=== PATIENT | female | born 1960 | race Caucasian/White ===

== ENCOUNTER 2018-09-04 11:35 | Emergency (ER) | payer MEDICAID, SELFPAY ==
[2018-09-04] VITALS (36 sets, daily range): BP systolic 130–152; BP diastolic 67–82; PULSE 54–80; RESP 11–36; TEMP 37.1; O2SAT 94–100
--- NOTE | 2018-09-04 12:00 | DI.CT_ITS ---
SYMPTOM/DIAGNOSIS: PLEURITIC CHEST AND BACK PAIN PE CHEST CT: CT angiography was performed with multi slice acquisition and multi planar and 3D reconstruction. CT angiography of the chest was performed with a bolus infusion of 100 cc's of Omnipaque 350. Images obtained through the upper abdomen show unremarkable appearance of visualized portions of the liver, spleen, pancreas, adrenals and kidneys. Thoracic aorta shows no evidence of aneurysm or dissection. No evidence of pulmonary embolic disease. No mediastinal or hilar adenopathy. Lungs are clear. No pleural effusion is seen. CONCLUSION: Negative CTA of chest.
--- NOTE | 2018-09-04 12:02 | W.ED.GENAD ---
Discharge Plan Disposition Patient Disposition: HOME Condition: Good Discharge Details Chief Complaint: SOB Clinical Impression: Chest pain, pleuritic Primary Care Provider: Caron Triplett ED Provider: Garrick Armstrong Home Meds and New Rx's Prescriptions: Continue albuterol sulfate [ProAir HFA] 8.5 GM HFA aerosol inhaler 2 puff Inhalation Q4H PRN RF: 0 fluticasone 16 GM spray,suspension 2 puff NS DAILY RF: 0 levothyroxine 112 MCG tablet 112 mcg PO DAILY RF: 0 bupropion HCl [Wellbutrin XL] 150 MG tablet extended release 24 hr 150 mg PO DAILY RF: 0 multivitamin Tablet 1 tab PO DAILY RF: 0 Discharge Instructions Instructions: Chest Pain (ED) Additional Instructions: You had a cat scan of your chest and lab work that did not show any concerning findings If you have worsening pain or difficulty breathing return to the emergency department Follow up with your primary care provider this week and discuss having stress testing done Medical Decision Making 57 yo female with hx of htn though not currently on meds, depression, hypothyroidism, comes in with over a week of chest and upper back pain that is stabbing in nature. Also notes some mild general weakness at the end of the day. Denies fevers recent surgery or recent travel, no lower extremity swelling or calf pain. Speaking in full sentences with clear lung sounds and no murmurs. EKG nondiagostis, heart score is 3 based on age and risk factors, will send troponin. Normal vascular exam and no tearing back pain so dissection less likely. Wells score is moderate given pleuritic nature of pain making PE just as equal likely diagnosis so will proceed with CTA of the chest labs and imaging all unremarkable per Dr. Dc who reviewed the CT. She only has pain with deep breaths, will obtain second troponin. Still has negative troponin less than 0.06. I advised she f/u with pcp this week and have outpatient stress testing done, return precautions given Differential Diagnosis chest wall pain, dissection, acs, pe ECG Data Attestation: I personally reviewed and interpreted this ECG (s) as follows: Prior ECG tracings: not available for review Interpretation: normal sinus rhythm, rate of 72, pr 154, no acute st t wave ischemic findings HPI General Mode of arrival: ambulatory. Date/Time Provider Initiated Documentation: 09/04/18 11:54. Limitations to Documentation: no limitations. Information obtained by: patient. History of Present Illness 57 year old F presents to the emergency department with the chief complaint of back and chest pain, described as moderate, with intensity rated at 6. Quality is described as stabbing, and is localized to the chest and back. Patient reports no radiation. Patient started experiencing this week(s) (1) and it has been intermittent. No relieving factors improve symptom(s), Other factors that worsen symptoms (deep breaths) . Patient notes weakness. Patient did receive the following treatments prior to arrival, none Related Data Home Medications Medication Instructions Recorded Confirmed albuterol sulfate [ProAir HFA] 2 puff INHALATION Q4H PRN inhaler 05/20/18 09/04/18 NS bupropion HCl [Wellbutrin XL] 150 mg PO DAILY tab-cap NS 05/20/18 09/04/18 fluticasone 2 puff NS DAILY spray NS 05/20/18 09/04/18 levothyroxine 112 mcg PO DAILY tab-cap NS 05/20/18 09/04/18 multivitamin 1 tab PO DAILY 09/04/18 09/04/18 Allergies Allergy/AdvReac Type Severity Reaction Status Date / Time Sulfa (Sulfonamide Allergy Unverified 05/20/18 13:02 Antibiotics) General Stated Complaint: SOB FELICITY: 2 Review of Systems Review of Systems All systems reviewed & are unremarkable except as noted in HPI and below Constitutional Denies chills, Denies fever(s) and Denies weakness Eyes Denies loss of vision ENT Denies change in voice Gastrointestinal Denies abdominal pain, Denies nausea and Denies vomiting Genitourinary Denies dysuria Musculoskeletal Denies joint swelling Integumentary/Breasts Denies rash Neurologic Denies loss of vision and Denies weakness [facility] Medical History Atypical chest pain Depression Family history of colon cancer Family history of diabetes mellitus Family history of early CAD Grief reaction Hypertension Hypothyroidism Morbid obesity Plantar fasciitis Social History Smoking/Tobacco Use Status: Never Exam Const General: no acute distress Orientation: alert HENMT Head: normal to inspection Ears: external ears normal General nose exam: external nose normal Mouth: moist mucous membranes Eyes General: appearance normal, both eyes and all related structures Neck Neck: normal visual inspection Chest Chest: normal inspection of the chest Resp Effort & Inspection: normal respiratory effort and able to speak in complete sentences Cardio Rate: regular rate Skin General skin exam: no rashes or lesions noted Neuro General: alert and oriented x3 Extrem General: normal to inspection Psych Mental Status: mental status grossly normal Course Vital Signs Temperature 37.1 C 09/04/18 11:45 Pulse 71 09/04/18 11:45 Respiratory Rate 18 09/04/18 11:45 Blood Pressure 151/79 H 09/04/18 11:45 Pulse Oximetry 100 09/04/18 11:45 Temperature 37.1 C 09/04/18 11:45 Temperature Source Temporal Artery Scan 09/04/18 11:45 Pulse 71 09/04/18 11:45 Respiratory Rate 18 09/04/18 11:45 Respiratory Effort 09/04/18 11:51 Blood Pressure 151/79 H 09/04/18 11:45 Blood Pressure Position Supine 09/04/18 11:45 Pulse Oximetry 100 09/04/18 11:45 Oxygen Delivery Method Room Air 09/04/18 11:45 Oxygen Flow Rate 0 09/04/18 11:45 Pain Level 5 09/04/18 11:45
--- NOTE | 2018-09-04 12:05 | ED.GENADUL_ITS ---
Discharge Plan Disposition Patient Disposition: HOME Condition: Good Discharge Details Chief Complaint: SOB Clinical Impression: Chest pain, pleuritic Primary Care Provider: Caron Triplett ED Provider: Garrick Armstrong Home Meds and New Rx's Prescriptions: Continue albuterol sulfate [ProAir HFA] 8.5 GM HFA aerosol inhaler 2 puff Inhalation Q4H PRN RF: 0 fluticasone 16 GM spray,suspension 2 puff NS DAILY RF: 0 levothyroxine 112 MCG tablet 112 mcg PO DAILY RF: 0 bupropion HCl [Wellbutrin XL] 150 MG tablet extended release 24 hr 150 mg PO DAILY RF: 0 multivitamin Tablet 1 tab PO DAILY RF: 0 Discharge Instructions Instructions: Chest Pain (ED) Additional Instructions: You had a cat scan of your chest and lab work that did not show any concerning findings If you have worsening pain or difficulty breathing return to the emergency department Follow up with your primary care provider this week and discuss having stress testing done Medical Decision Making 57 yo female with hx of htn though not currently on meds, depression, hypothyroidism, comes in with over a week of chest and upper back pain that is stabbing in nature. Also notes some mild general weakness at the end of the day. Denies fevers recent surgery or recent travel, no lower extremity swelling or calf pain. Speaking in full sentences with clear lung sounds and no murmurs. EKG nondiagostis, heart score is 3 based on age and risk factors, will send troponin. Normal vascular exam and no tearing back pain so dissection less likely. Wells score is moderate given pleuritic nature of pain making PE just as equal likely diagnosis so will proceed with CTA of the chest labs and imaging all unremarkable per Dr. Dc who reviewed the CT. She only has pain with deep breaths, will obtain second troponin. Still has negative troponin less than 0.06. I advised she f/u with pcp this week and have outpatient stress testing done, return precautions given Differential Diagnosis chest wall pain, dissection, acs, pe ECG Data Attestation: I personally reviewed and interpreted this ECG (s) as follows: Prior ECG tracings: not available for review Interpretation: normal sinus rhythm, rate of 72, pr 154, no acute st t wave ischemic findings HPI General Mode of arrival: ambulatory . Date/Time Provider Initiated Documentation: 09/04/18 11:54 . Limitations to Documentation: no limitations . Information obtained by: patient . History of Present Illness 57 year old F presents to the emergency department with the chief complaint of back and chest pain, described as moderate, with intensity rated at 6. Quality is described as stabbing, and is localized to the chest and back. Patient reports no radiation. Patient started experiencing this week(s) (1) and it has been intermittent. No relieving factors improve symptom(s), Other factors that worsen symptoms (deep breaths) . Patient notes weakness. Patient did receive the following treatments prior to arrival, none Related Data Home Medications Medication Instructions Recorded Confirmed albuterol sulfate [ProAir HFA] 2 puff INHALATION Q4H PRN inhaler 05/20/1809/04 NS bupropion HCl [Wellbutrin XL] 150 mg PO DAILY tab-cap NS 05/20/18 09/04/18 fluticasone 2 puff NS DAILY spray NS 05/20/18 09/04/18 levothyroxine 112 mcg PO DAILY tab-cap NS 05/20/18 09/04/18 multivitamin 1 tab PO DAILY 09/04/18 09/04/18 Allergies Allergy/AdvReac Type Severity Reaction Status Date / Time Sulfa (Sulfonamide Allergy Unverified 05/20/18 13:02 Antibiotics) General Stated Complaint: SOB FELICITY: 2 Review of Systems Review of Systems All systems reviewed & are unremarkable except as noted in HPI and below Constitutional Denies chills, Denies fever(s) and Denies weakness Eyes Denies loss of vision ENT Denies change in voice Gastrointestinal Denies abdominal pain, Denies nausea and Denies vomiting Genitourinary Denies dysuria Musculoskeletal Denies joint swelling Integumentary/Breasts Denies rash Neurologic Denies loss of vision and Denies weakness [facility] Medical History Atypical chest pain Depression Family history of colon cancer Family history of diabetes mellitus Family history of early CAD Grief reaction Hypertension Hypothyroidism Morbid obesity Plantar fasciitis Social History Smoking/Tobacco Use Status: Never Exam Const General: no acute distress Orientation: alert HENMT Head: normal to inspection Ears: external ears normal General nose exam: external nose normal Mouth: moist mucous membranes Eyes General: appearance normal, both eyes and all related structures Neck Neck: normal visual inspection Chest Chest: normal inspection of the chest Resp Effort & Inspection: normal respiratory effort and able to speak in complete sentences Cardio Rate: regular rate Skin General skin exam: no rashes or lesions noted Neuro General: alert and oriented x3 Extrem General: normal to inspection Psych Mental Status: mental status grossly normal Course Vital Signs Temperature 37.1 C 09/04/18 11:45 Pulse 71 09/04/18 11:45 Respiratory Rate 18 09/04/18 11:45 Blood Pressure 151/79 H 09/04/18 11:45 Pulse Oximetry 100 09/04/18 11:45 Temperature 37.1 C 09/04/18 11:45 Temperature Source Temporal Artery Scan 09/04/18 11:45 Pulse 71 09/04/18 11:45 Respiratory Rate 18 09/04/18 11:45 Respiratory Effort 09/04/18 11:51 Blood Pressure 151/79 H 09/04/18 11:45 Blood Pressure Position Supine 09/04/18 11:45 Pulse Oximetry 100 09/04/18 11:45 Oxygen Delivery Method Room Air 09/04/18 11:45 Oxygen Flow Rate 0 09/04/18 11:45 Pain Level 5 09/04/18 11:45
[2018-09-04] MEDS: Aspirin 81 MG CHEW 324 MG CH (12:13)
[2018-09-04] MEDS: Normal Saline 1,000 ML 1000 ML IV (12:35)
[2018-09-04 12:36] LABS: Absolute Basophil Count 0.01 k/cumm (0.0-0.2); Absolute Eosinophil Count 0.05 k/cumm (0.0-0.7); Absolute Lymphocyte Count 2.05 k/cumm (1.2-3.4); Absolute Monocyte Count 0.53 k/cumm (0.11-0.7); Absolute Neutrophil Count 4.38 k/cumm (1.2-6.7); Basophils % 0.1; Eosinophils % 0.7; HCT 44.6 % (36.0-46.0); HGB 14.9 g/dL (12.0-15.5); Lymphocytes % 29.2; Mean Corp. HGB Concentration 33.4 g/dL (32.0-36.0); Mean Corpuscular Hemoglobin 31.2 pg (27.0-33.0); Mean Corpuscular Volume 93.3 fL (80-95); Mean Platelet Volume 9.5 fL (8.0-11.0); Monocytes % 7.5; Neutrophils % 62.5; Platelet Count 291 x1000/uL (130-400); RBC 4.78 m/cumm (4.00-5.20); RBC Distribution Width 12.8 % (11.7-14.6); White Blood Cell Count 7.02 k/cumm (4.4-10.8)
[2018-09-04 12:48] LABS: INR 1.1 (1.0-3.5); PTT Activated 21.4 sec (21.0-31.4); Prothrombin Time 10.4 sec (9.3-10.8)
[2018-09-04 13:07] LABS: ALT 44 U/L (12-78); AST 30 U/L (15-37); Albumin 3.9 g/dL (3.4-5.0); Alkaline Phosphatase 74 U/L (46-116); Anion Gap 9.6 mmol/L (3-11); BUN 19 mg/dL (7-18); Bilirubin, Total 0.4 mg/dL (0.2-1.0); CO2 27.4 mmol/L (21.0-32.0); CREATININE 0.65 mg/dL (0.55-1.02); Chloride 106 mmol/L (98-107); Glucose 92 mg/dL (70-100); Lipase 262 U/L (73-393); Magnesium 2.1 mg/dL (1.8-2.4); NT-proBNP 61 pg/mL; Potassium 4.3 mmol/L (3.5-5.1); Sodium 143 mmol/L (136-145); Total Protein 6.9 g/dL (6.4-8.2); Troponin I 0.03 ng/mL (0.00-0.06)
[2018-09-04] MEDS: Omnipaque 350 MG/ML 100 ML BTL IJ (13:32)
[2018-09-04 15:02] LABS: Troponin I 0.04 ng/mL (0.00-0.06)
== END 2018-09-04 15:35 | disposition home or self-care (01) ==
PROVIDERS: Emergency Provider Emergency Medicine; PCP Family Medicine
DX: R07.81 Pleurodynia (principal); I10 Essential (primary) hypertension
CPT/HCPCS: 36415; 71275; 80053; 80076; 83690; 96360; 99285; 83735; 83880; 84484; 85025; 85610; 85730; 99284; J3490

== ENCOUNTER 2018-10-31 11:10 | Day surgery (SDC) | payer MEDICAID, SELFPAY ==
--- NOTE | 2018-10-31 07:24 | W.COLOREPORT ---
Date of service: 10/31/18 Time of Service: : Colonoscopy Report Date of procedure: 10/31/18 Pre-op diagnosis general: Colon Cancer Screening Post-op diagnosis procedure note: other (Ascending polyp/ diverticulosis) Procedure: Colonoscopy with polypectomy Surgeon: Genia Hawkins Anesthesia proc note operative: MAC (Padilla Ibrahim CRNA/ ASA 3) Estimated blood loss (mL): 2 Pathology: other (Ascending Polyp) Complications: None Disposition: same day Prep: Miralax/Dulcolax Procedure Start Time: : Procedure End Time: 13:03 Retraction Time: 12 minutes Findings: 1. Moderate medley-diverticulosis 2. Small ascending Colon polyp Procedure Description: After informed consent was obtained the patient was taken to the procedure room and placed in a left decubitous position. Monitors were applied and a time out was done. The patients name, date of , procedure, allergies to medications and metal in their body was reviewed. The patient was then sedated. Once sedated and comfortable a rectal exam was done. External exam was normal. Internal exam revealed a normal sphincter tone and no palpable masses. The scope was then introduced and retro-flexed. No internal hemorrhoids were identified. The scope was then advanced to the cecum with difficulty secondary to central obesity and tortuous colon. The TI and appendiceal orifice were identified. The prep was OK. There was bile tinged mucus and some stool throughout the right colon. I was able to wash most of it off the vargas. The scope was then slowly retracted over 12 minutes back into the rectum. Polyps were removed in the ascending colon. The scope was removed and the patient was woken up and taken back to Same day surgery in stable condition. The patient tolerated the procedure well and there were no immediate complications. Follow up: The patient should follow up in 3-5 years unless they develop changes in bowel habits or other new gastrointestinal complaints.
--- NOTE | 2018-10-31 07:24 | W.PM.DSUDISC ---
Discharge Plan Disposition Patient Disposition: HOME Condition: Good Discharge Details Reason For Visit: Colon Cancer Screening Attending Provider: Genia Hawkins Primary Care Provider: Caron Triplett Home Meds and New Rx's Prescriptions: Continued lisinopril 10 mg tablet 10 mg PO DAILY RF: 0 ProAir HFA 8.5 GM HFA aerosol inhaler 2 puff Inhalation Q4H PRN RF: 0 fluticasone 16 GM spray,suspension 2 puff NS DAILY RF: 0 levothyroxine 112 MCG tablet 112 mcg PO DAILY RF: 0 bupropion HCl [Wellbutrin XL] 150 MG tablet extended release 24 hr 150 mg PO DAILY RF: 0 multivitamin Tablet 1 tab PO DAILY RF: 0 Discontinued bisacodyl [Dulcolax (bisacodyl)] 5 mg tablet,delayed release (DR/EC) 5 mg PO ONCE Qty: 4 RF: 0 polyethylene glycol 3350 17 gram/dose powder 255 g PO ONCE Qty: 255 RF: 0 Discharge Instructions Instructions: Colonoscopy (DC), Diverticulosis (DC), Colorectal Polyps (DC) Additional Instructions: Findings: small sessile polyp Diverticulosis Follow up:3-5 years Please call if you develop: fevers >101.5 Nausea or Vomiting Abdominal pain that is not transient DAY SURGERY UNIT POST COLONOSCOPY INSTRUCTIONS 1. Because there will be medication in your system for the next 24 hours, you may feel a little sleepy. Your coordination will be affected. Therefore: a. Do not drive or operate dangerous equipment for 24 hours. b. Do not drink alcohol beverages for 24 hours (not even beer). c. Plan to go home and rest for the day. 2. Generally there are no restrictions on your activity after a day or so has gone by, but you may feel a bit fatigued for a few days. 3 After you arrive home you may have a light meal and return to a normal diet as you can tolerate it without feeling sick to your stomach. 4. After surgery, you may feel pain or discomfort. This should be only transient, but if it persists please contact your doctor. 5. If there are any questions regarding the findings of your procedure, please feel free to contact your doctor. 6. If you are unable to contact your doctor with a problem, contact the hospital at [phone]. 7. Continue all your regular medications unless directed otherwise. I understand the above instructions and have no questions. Signature of Patient or Responsible Adult Escort Date/Time Name of Responsible Adult Escort Signature of Nurse Date/Time Activity:: Activity as Tolerated Diet:: As Tolerated Discharge Orders Discharge Orders: Discharge Order (Routine); Ordered 10/31/18 Ordered By: Genia Hawkins DS: Diagnosis Discharge Diagnosis (1) Diverticulosis: Status: Acute (2) Colorectal polyps: Status: Acute (3) S/P colonoscopy: Status: Acute
[2018-10-31 11:28] VITALS: BP 132/72; PULSE 87; RESP 16; TEMP 36.9; O2SAT 98
[2018-10-31] MEDS: Lactated Ringers 1,000 ML 80 ML IV (11:56)
--- NOTE | 2018-10-31 12:52 | BOWEL_PTH ---
PATIENT: Meron Carlton LOC: [facility] U#:[id number] AGE/SX: 58/F ROOM: RE10/31/[address]: Genia Hawkins MD : 1960 BED: DIS: 10/31/2018 SPEC #: [id number] RECD: 10/31/18 17:27 STATUS: TOMASZ REQ #: [id number] MAIKEL: 10/31/18 12:[address]: Genia Hawkins DEPT: Surgical Specimen RECD BY: Lorrie Crandall ENTERED: 10/31/18 17:28 SP TYPE: Bowel OTHR DR: Caron Triplett Tissues: 1 - BIOPSY BOWEL Procedures: GROSS AND MICRO LEVEL 4 Comments: [id number]
[2018-10-31 13:34] VITALS: BP 112/68; PULSE 60; RESP 16; TEMP 36.1; O2SAT 99
== END 2018-10-31 15:31 | disposition home or self-care (01) ==
LOC: SUR 11:10
PROVIDERS: PCP Family Medicine; Visit Provider Surgery
PROC: 0DJD8ZZ Inspection of Lower Intestinal Tract, Via Natural or Artificial Opening Endoscopic (ICD-10-PCS; CPT 45378; principal; 2018-10-31 11:15)
DX: Z12.11 Encounter for screening for malignant neoplasm of colon (principal); K63.89 Other specified diseases of intestine; K57.30 Diverticulosis of large intestine without perforation or abscess without bleeding; D12.2 Benign neoplasm of ascending colon; I10 Essential (primary) hypertension
CPT/HCPCS: 45380; 88305

== ENCOUNTER 2019-02-21 07:56 | Outpatient (CLI) | payer MEDICAID, SELFPAY ==
--- NOTE | 2019-02-21 08:50 | DI.RAD_ITS ---
SYMPTOM/DIAGNOSIS: LOW AND MID BACK PAIN, M54.5 LUMBAR SPINE: AP, lateral and bilateral oblique views of the lumbar spine were obtained. There are five lumbar type vertebral bodies. There is normal alignment. No spondylolysis or spondylolisthesis is identified. There are endplate osteophytes throughout the lumbar spine. Degenerative changes are seen at the facets from L 3 through L 5-S 1. No acute fractures or subluxations are seen. IMPRESSION: Mild to moderate degenerative changes of the lumbar spine. THORACIC SPINE: AP and lateral views. No priors. There is normal alignment. The paraspinal lines are intact. There are endplate osteophytes present throughout the lumbar spine. No acute fractures or subluxations are seen. IMPRESSION: Mild degenerative changes seen in the lumbar spine.
== END 2019-02-21 08:16 ==
PROVIDERS: PCP Family Medicine; Visit Provider Nurse Practitioner Family
DX: M54.5 Low back pain (principal); M54.6 Pain in thoracic spine; M47.817 Spondylosis without myelopathy or radiculopathy, lumbosacral region
CPT/HCPCS: 72072; 72110

== ENCOUNTER 2019-03-12 12:44 | Emergency (ER) | payer MEDICAID, SELFPAY ==
[2019-03-12 12:49] VITALS: BP 132/88; PULSE 92; RESP 16; TEMP 36.8; O2SAT 98
--- NOTE | 2019-03-12 14:42 | DI.RAD_ITS ---
SYMPTOMS/DIAGNOSIS: KNEE PAIN RIGHT KNEE: Three views. No priors. No acute bone, joint or soft tissue abnormality is identified. Mild periarticular spurring is seen involving all three joint compartments consistent with osteoarthritis. The soft tissues are unremarkable. IMPRESSION: No acute abnormality.
--- NOTE | 2019-03-12 15:07 | DI.VRAD_ITS ---
EXAM: XR Right Knee EXAM DATE/TIME: 03/12/2019 12:56 PM CLINICAL HISTORY: 58 years old, female; Patient HX: Right knee pain, no trauma, no surgery. TECHNIQUE: Imaging protocol: XR Right knee. Views: 3 views. COMPARISON: No relevant prior studies available. FINDINGS: Bones/joints: Normal. There is no evidence of acute fracture.There is no evidence of malalignment or dislocation. Soft tissues: Normal. IMPRESSION: No acute findings. Dictated and Authenticated by: Heather Price MD. Ordering:NUVIA Leigh MD
--- NOTE | 2019-03-12 15:18 | W.ED.GENAD ---
Discharge Plan Disposition Patient Disposition: HOME Condition: Stable Discharge Details Chief Complaint: Orthopedic Clinical Impression: Right knee sprain Primary Care Provider: Caron Triplett ED Provider: Reese Leal Home Meds and New Rx's Prescriptions: Continued lisinopril 10 mg tablet 10 mg PO DAILY RF: 0 ProAir HFA 8.5 GM HFA aerosol inhaler 2 puff Inhalation Q4H PRN RF: 0 fluticasone propionate 16 GM spray,suspension 2 puff NS DAILY RF: 0 levothyroxine 112 MCG tablet 112 mcg PO DAILY RF: 0 bupropion HCl [Wellbutrin XL] 150 MG tablet extended release 24 hr 150 mg PO DAILY RF: 0 multivitamin Tablet 1 tab PO DAILY RF: 0 Discharge Instructions Instructions: Knee Sprain (ED) Additional Instructions: Please wear the supportive hinged knee brace for at least the next 2 weeks and slowly advance activity as tolerated. If any certain movements or activities cause significant increase in discomfort you should restrict these type motions. You may continue to take ibuprofen and acetaminophen for discomfort and if not improving over the next 1 to 2 weeks please call orthopedist for reassessment. Referrals: Brett Esqueda MD [ [facility] STAFF PHYSICIAN] - (Call the office in 1 to 2 weeks for reassessment) Discharge Data Discharge Date/Time-TO BE ENTERED AT DEPARTURE: 03/12/19 15:31 Medical Decision Making Patient presenting to the emergency department for chief complaint of right knee pain. Patient states that she has been going through physical therapy for some back pain and has been noticing that she has been favoring her right leg. 3 days ago patient had a twisting motion to her right knee had worsening pain and discomfort since mostly to the medial aspect of the knee. Patient denies any other injury or trauma, numbness or tingling. Physical exam shows tenderness with valgus and medial tenderness to the knee otherwise no other acute findings are noted on exam. Patient states difficulty bearing weight on extremity plan to do retinal imaging. Patient denies need for pain medication pending results. Review of radiological imaging and radiologist dictation shows no acute findings. Patient hinged knee brace and we discussed crutch use but she is more afraid that this is going to exacerbate her back symptoms so we discussed activity modification and rest over the next couple days and slowly advance activity as tolerated. Patient was able to ambulate with a hinged knee brace on and did state some improved comfort due to this. Patient informed to call orthopedist if not improving. HPI General Mode of arrival: wheelchair. Date/Time Provider Initiated Documentation: 03/12/19 12:55. Limitations to Documentation: no limitations. Information obtained by: patient and RN notes reviewed. History of Present Illness 58 year old F presents to the emergency department with the chief complaint of right knee injury, described as moderate, with intensity rated at 6. Quality is described as sharp, and is localized to the right and lower extremity. Patient reports no radiation. Patient started experiencing this day(s) (3) and it has been constant. Rest improves symptom(s), Movement worsens symptoms . Patient notes no other symptoms.. Patient did receive the following treatments prior to arrival, NSAID Related Data Home Medications Medication Instructions Recorded Confirmed ProAir HFA 2 puff INHALATION Q4H PRN inhaler 05/20/18 10/31/18 NS bupropion HCl [Wellbutrin XL] 150 mg PO DAILY tab-cap NS 05/20/18 10/31/18 fluticasone propionate 2 puff NS DAILY spray NS 05/20/18 10/31/18 levothyroxine 112 mcg PO DAILY tab-cap NS 05/20/18 10/31/18 multivitamin 1 tab PO DAILY 09/04/18 10/31/18 lisinopril 10 mg tablet 10 mg PO DAILY 10/21/18 10/31/18 Allergies Allergy/AdvReac Type Severity Reaction Status Date / Time Sulfa (Sulfonamide Allergy Unverified 03/12/19 12:58 Antibiotics) General Stated Complaint: Orthopedic FELICITY: 4 Review of Systems Cardiovascular Denies syncope Musculoskeletal Reports as per HPI, Denies numbness and Denies tingling Integumentary/Breasts Denies rash, Denies sores and Denies wounds Neurologic Denies syncope, Denies numbness and Denies tingling PFSH Medical History Colorectal polyps (Acute ~10/31/18) Diverticulosis (Acute ~10/31/18) Atypical chest pain Depression Family history of colon cancer Family history of diabetes mellitus Family history of early CAD Grief reaction Hypertension Hypothyroidism Morbid obesity Plantar fasciitis Surgical History S/P colonoscopy (Acute ~10/31/18) Social History Smoking/Tobacco Use Status: Never Alcohol Intake: current Alcohol Intake frequency: holidays/special occasions only Drug use: Never Do you feel safe at home: Yes Do you feel safe in your relationship?: Yes Exam Const General: cooperative and no acute distress Orientation: alert, awake and oriented x3 Resp Effort & Inspection: normal respiratory effort and able to speak in complete sentences Cardio Rate: regular rate Rhythm: regular rhythm Extrem Right lower extremity: hip/thigh Details: normal to inspection; no tenderness, knee Details: tenderness Location: of the medial joint line, swelling (medial), abnormal ROM Details: pain with active ROM during and knee ligament exam abnormal Details: valgus stress test normal Details: pain noted; no crepitus, no deformity and no unusual warmth, lower leg Details: normal to inspection; no erythema and no tenderness and foot Details: normal capillary refill and vascular exam Details: dorsalis pedis pulse present and posterior tibial pulse present Course Vital Signs Temperature 36.8 C 03/12/19 12:49 Pulse 92 H 03/12/19 12:49 Respiratory Rate 16 03/12/19 12:49 Blood Pressure 132/88 03/12/19 12:49 Pulse Oximetry 98 03/12/19 12:49 Temperature 36.8 C 03/12/19 12:49 Temperature Source Temporal Artery Scan 03/12/19 12:49 Pulse 92 H 03/12/19 12:49 Respiratory Rate 16 03/12/19 12:49 Respiratory Effort Non-Labored 03/12/19 12:55 Blood Pressure 132/88 03/12/19 12:49 Blood Pressure Position Sitting 03/12/19 12:49 Pulse Oximetry 98 03/12/19 12:49 Oxygen Delivery Method Room Air 03/12/19 12:49 Oxygen Flow Rate 0 03/12/19 12:49 Pain Level 6 03/12/19 12:55
--- NOTE | 2019-03-12 15:24 | ED.GENADUL_ITS ---
Discharge Plan Disposition Patient Disposition: HOME Condition: Stable Discharge Details Chief Complaint: Orthopedic Clinical Impression: Right knee sprain Primary Care Provider: Caron Triplett ED Provider: Reese Leal Home Meds and New Rx's Prescriptions: Continued lisinopril 10 mg tablet 10 mg PO DAILY RF: 0 ProAir HFA 8.5 GM HFA aerosol inhaler 2 puff Inhalation Q4H PRN RF: 0 fluticasone propionate 16 GM spray,suspension 2 puff NS DAILY RF: 0 levothyroxine 112 MCG tablet 112 mcg PO DAILY RF: 0 bupropion HCl [Wellbutrin XL] 150 MG tablet extended release 24 hr 150 mg PO DAILY RF: 0 multivitamin Tablet 1 tab PO DAILY RF: 0 Discharge Instructions Instructions: Knee Sprain (ED) Additional Instructions: Please wear the supportive hinged knee brace for at least the next 2 weeks and slowly advance activity as tolerated. If any certain movements or activities cause significant increase in discomfort you should restrict these type motions. You may continue to take ibuprofen and acetaminophen for discomfort and if not improving over the next 1 to 2 weeks please call orthopedist for reassessment. Referrals: Brett Esqueda MD [ [facility] STAFF PHYSICIAN] - (Call the office in 1 to 2 weeks for reassessment) Discharge Data Discharge Date/Time-TO BE ENTERED AT DEPARTURE: 03/12/19 15:31 Medical Decision Making Patient presenting to the emergency department for chief complaint of right knee pain. Patient states that she has been going through physical therapy for some back pain and has been noticing that she has been favoring her right leg. 3 days ago patient had a twisting motion to her right knee had worsening pain and discomfort since mostly to the medial aspect of the knee. Patient denies any other injury or trauma, numbness or tingling. Physical exam shows tenderness with valgus and medial tenderness to the knee otherwise no other acute findings are noted on exam. Patient states difficulty bearing weight on extremity plan to do retinal imaging. Patient denies need for pain medication pending results. Review of radiological imaging and radiologist dictation shows no acute findings. Patient hinged knee brace and we discussed crutch use but she is more afraid that this is going to exacerbate her back symptoms so we discussed activity modification and rest over the next couple days and slowly advance activity as tolerated. Patient was able to ambulate with a hinged knee brace on and did state some improved comfort due to this. Patient informed to call orthopedist if not improving. HPI General Mode of arrival: wheelchair . Date/Time Provider Initiated Documentation: 03/12/19 12:55 . Limitations to Documentation: no limitations . Information obtained by: patient and RN notes reviewed . History of Present Illness 58 year old F presents to the emergency department with the chief complaint of right knee injury, described as moderate, with intensity rated at 6. Quality is described as sharp, and is localized to the right and lower extremity. Patient reports no radiation. Patient started experiencing this day(s) (3) and it has been constant. Rest improves symptom(s), Movement worsens symptoms . Patient notes no other symptoms.. Patient did receive the following treatments prior to arrival, NSAID Related Data Home Medications Medication Instructions Recorded Confirmed ProAir HFA 2 puff INHALATION Q4H PRN inhaler 05/20/18 10/31/18 NS bupropion HCl [Wellbutrin XL] 150 mg PO DAILY tab-cap NS 05/20/18 10/31/18 fluticasone propionate 2 puff NS DAILY spray NS 05/20/18 10/31/18 levothyroxine 112 mcg PO DAILY tab-cap NS 05/20/18 10/31/18 multivitamin 1 tab PO DAILY 09/04/18 10/31/18 lisinopril 10 mg tablet 10 mg PO DAILY 10/21/18 10/31/18 Allergies Allergy/AdvReac Type Severity Reaction Status Date / Time Sulfa (Sulfonamide Allergy Unverified 03/12/19 12:58 Antibiotics) General Stated Complaint: Orthopedic FELICITY: 4 Review of Systems Cardiovascular Denies syncope Musculoskeletal Reports as per HPI, Denies numbness and Denies tingling Integumentary/Breasts Denies rash, Denies sores and Denies wounds Neurologic Denies syncope, Denies numbness and Denies tingling PFSH Medical History Colorectal polyps (Acute ~10/31/18) Diverticulosis (Acute ~10/31/18) Atypical chest pain Depression Family history of colon cancer Family history of diabetes mellitus Family history of early CAD Grief reaction Hypertension Hypothyroidism Morbid obesity Plantar fasciitis Surgical History S/P colonoscopy (Acute ~10/31/18) Social History Smoking/Tobacco Use Status: Never Alcohol Intake: current Alcohol Intake frequency: holidays/special occasions only Drug use: Never Do you feel safe at home: Yes Do you feel safe in your relationship?: Yes Exam Const General: cooperative and no acute distress Orientation: alert, awake and oriented x3 Resp Effort & Inspection: normal respiratory effort and able to speak in complete sentences Cardio Rate: regular rate Rhythm: regular rhythm Extrem Right lower extremity: hip/thigh Details: normal to inspection; no tenderness, knee Details: tenderness Location: of the medial joint line, swelling (medial), abnormal ROM Details: pain with active ROM during and knee ligament exam abnormal Details: valgus stress test normal Details: pain noted; no crepitus, no deformity and no unusual warmth, lower leg Details: normal to inspection; no e rythema and no tenderness and foot Details: normal capillary refill and vascular exam Details: dorsalis pedis pulse present and posterior tibial pulse present Course Vital Signs Temperature 36.8 C 03/12/19 12:49 Pulse 92 H 03/12/19 12:49 Respiratory Rate 16 03/12/19 12:49 Blood Pressure 132/88 03/12/19 12:49 Pulse Oximetry 98 03/12/19 12:49 Temperature 36.8 C 03/12/19 12:49 Temperature Source Temporal Artery Scan 03/12/19 12:49 Pulse 92 H 03/12/19 12:49 Respiratory Rate 16 03/12/19 12:49 Respiratory Effort Non-Labored 03/12/19 12:55 Blood Pressure 132/88 03/12/19 12:49 Blood Pressure Position Sitting 03/12/19 12:49 Pulse Oximetry 98 03/12/19 12:49 Oxygen Delivery Method Room Air 03/12/19 12:49 Oxygen Flow Rate 0 03/12/19 12:49 Pain Level 6 03/12/19 12:55
== END 2019-03-12 15:31 | disposition home or self-care (01) ==
PROVIDERS: Emergency Provider Nurse Practitioner Family; PCP Family Medicine
DX: S83.511A Sprain of anterior cruciate ligament of right knee, initial encounter (principal); X50.9XXA Other and unspecified overexertion or strenuous movements or postures, initial encounter; Y93.K2 Activity, milking an animal; I10 Essential (primary) hypertension
CPT/HCPCS: 29505; 73562; 99283; L1810

== ENCOUNTER 2019-04-25 01:30 | Outpatient (CLI) | payer MEDICAID, SELFPAY ==
--- NOTE | 2019-04-25 14:50 | DI.MRI_ITS ---
SYMPTOMS/DIAGNOSIS: RIGHT KNEE HYPEREXTENSION INJURY, S83.8X1A, SPRAIN, TRAUMA X 6 WEEKS AGO, POSTERIOR PAIN RIGHT KNEE MRI: MRI examination of the knee was performed according to the usual protocol, but body coil was utilized rather than the dedicated knee coil due to the patient's size. There is abnormal signal in medial tibial plateau, probably on a degenerative basis. Medial meniscus shows abnormal signal, but I cannot confirm a surfacing tear and the findings may represent degeneration. The medial meniscus is displaced peripherally. No gross medial collateral ligament tears seen. The lateral meniscus shows grossly normal signal as visualized. No cruciate ligament tears seen. No specific evidence of fracture. Extensor mechanism grossly intact. CONCLUSION: Limited scan secondary to use of the body coil due to the patient's size. No cruciate ligament tear. Medial meniscal tear not excluded. Mild signal abnormality of medial tibial plateau, degenerative finding versus bony trabecular injury.
== END 2019-04-25 01:50 ==
PROVIDERS: PCP Family Medicine; Visit Provider Student in an Organized Health Care Education/Training Program
DX: S83.8X1A Sprain of other specified parts of right knee, initial encounter (principal); M25.561 Pain in right knee
CPT/HCPCS: 73721

== ENCOUNTER 2019-05-04 11:46 | Day surgery (SDC) | payer MEDICAID, SELFPAY ==
[2019-05-04] VITALS (12 sets, daily range): BP systolic 127–183; BP diastolic 71–117; PULSE 57–74; RESP 9–18; TEMP 36–36.7; O2SAT 93–99
[2019-05-04] MEDS: Lactated Ringers 1,000 ML 80 ML IV (12:40)
--- NOTE | 2019-05-04 12:46 | PDOC.DSDIS_ITS ---
Discharge Plan Disposition Patient Disposition: HOME Condition: Good Discharge Details Reason For Visit: Right medial meniscal tear Attending Provider: Brett Esqueda Primary Care Provider: Caron Triplett Home Meds and New Rx's Prescriptions: New hydrocodone-acetaminophen 5-325 mg tablet 1 tab PO Q6H PRN (Reason: severe pain) Qty: 6 RF: 0 Continued lisinopril 10 mg tablet 10 mg PO DAILY RF: 0 albuterol sulfate [ProAir HFA] 8.5 GM HFA aerosol inhaler 2 puff Inhalation Q4H PRN RF: 0 fluticasone propionate 16 GM spray,suspension 2 puff NS DAILY PRNRF: 0 levothyroxine 112 MCG tablet 112 mcg PO DAILY RF: 0 bupropion HCl [Wellbutrin XL] 150 MG tablet extended release 24 hr 150 mg PO DAILY RF: 0 multivitamin Tablet 1 tab PO DAILY RF: 0 Discharge Instructions Additional Instructions: You should only use Hydrocodone for breakthrough pain. Keep wounds covered with at least a bandaid until follow-up. Stand Alone Forms: Dheeraj Knee Arthroscopy Referrals: rBett Esqueda MD [ [facility] STAFF PHYSICIAN] - Activity:: Elevate Remove Dressings/Wound Care:: 72 hours Shower/Bathe:: 72 hours DS: Diagnosis Discharge Diagnosis (1) Acute medial meniscal injury of right knee: Status: Acute
[2019-05-04] MEDS: ceFAZolin 3,000 MG in Normal Saline 100 ML 200 MG IVPB (12:53)
[2019-05-04] MEDS: Bupivacaine 0.5% Pres-Free 30 ML VIAL (13:58)
[2019-05-04] MEDS: fentaNYL 100 MCG/2 ML VIAL IVP ×2 (14:18→14:30)
[2019-05-04] MEDS: Bupivacaine 0.25% Pres-Free 30 ML VIAL (15:22)
[2019-05-04] MEDS: Bupivacaine LIPOSOME/PF 133 MG/10 ML VIAL IJ (15:38)
--- NOTE | 2019-05-04 15:54 | W.PM.DSUDISC ---
Discharge Plan Disposition Patient Disposition: HOME Condition: Good Discharge Details Reason For Visit: Right medial meniscal tear Attending Provider: Brett Esqueda Primary Care Provider: Caron Triplett Home Meds and New Rx's Prescriptions: New oxycodone 5 mg tablet 5 mg PO Q4H Qty: 12 RF: 0 Continued lisinopril 10 mg tablet 10 mg PO DAILY RF: 0 albuterol sulfate [ProAir HFA] 8.5 GM HFA aerosol inhaler 2 puff Inhalation Q4H PRN RF: 0 fluticasone propionate 16 GM spray,suspension 2 puff NS DAILY PRNRF: 0 levothyroxine 112 MCG tablet 112 mcg PO DAILY RF: 0 bupropion HCl [Wellbutrin XL] 150 MG tablet extended release 24 hr 150 mg PO DAILY RF: 0 multivitamin Tablet 1 tab PO DAILY RF: 0 Discharge Instructions Additional Instructions: You should only use Oxycodone for breakthrough pain. Keep wounds covered with at least a bandaid until follow-up. Use the CryoCuff (ice pack) as tolerated. Always have something between the skin and ice pack. Stand Alone Forms: Anes.Nerve Block Instructions, Dheeraj Knee Arthroscopy, DSU Post op Instructions, Chema Polanco (DSU) Referrals: Brett Esqueda MD [ [facility] STAFF PHYSICIAN] - Activity:: Elevate Remove Dressings/Wound Care:: 72 hours Shower/Bathe:: 72 hours Discharge Orders Discharge Orders: Discharge Order (Routine); Ordered 05/04/19 Ordered By: Galina Raines DS: Diagnosis Discharge Diagnosis (1) Acute medial meniscal injury of right knee: Status: Acute
[2019-05-04] MEDS: oxyCODONE 5 MG TAB PO (16:38)
--- NOTE | 2019-05-05 06:11 | W.PM.OP ---
Date of service: 05/04/19 Time of Service: 14:11 Operative Note DATE OF PROCEDURE: 05/04/19 PRE-OP DIAGNOSIS: Right knee medial meniscal tear POST-OP DIAGNOSIS: other (Right knee medial meniscal tear involving the root and posterior horn) PROCEDURE: Right knee arthroscopic partial medial meniscectomy SURGEON: Brett Esqueda ANESTHESIA: GETA ESTIMATED BLOOD LOSS: 0 PATHOLOGY: none sent COMPLICATIONS: None Patient was transported to: PACU Patient's condition: stable Indications: I have seen Meron in clinic for symptoms of a meniscus tear. This was confirmed based on MRI and exam findings. Nonoperative measures were exhausted but disability and pain persisted. I discussed knee arthroscopy with meniscal intervention with the patient. I reviewed the risks of the procedure to include, but not limited to, bleeding, infection, pain, stiffness, damage to nerves or vessels, recurrence, blood clot. Despite these risks, the patient elected to proceed. 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 The consent was reviewed with the patient and signed. The history and physical was updated. All questions were answered. Meron was taken back to the operating room. The patient was placed into the supine position on the operating room table. A nonsterile tourniquet was placed high onto the leg but not used. All bony prominences were well padded. Prophylactic antibiotics in the form of cefazolin were administered. The right leg was then prepped with Chloraprep and draped in a standard fashion with stockinette and extremity drape. A timeout to confirm correct identity, side and site, procedure, allergies, anesthesia, and medical concerns was performed. The leg was placed into a pneumatic leg lafleur, [id number]. A standard lateral portal was made at the lateral border of the patella tendon in line with the inferior pole of the patella, soft spot. The skin and deep tissue was incised sharply and the blunt trochar was inserted atraumatically. A diagnostic arthroscopy was performed and the findings are listed above. The suprapatellar pouch had mild to moderate inflammatory changes. The patellofemoral articulation showed very mild chondromalacia of the patella as well as good tracking. The lateral gutter had no loose bodies and the medial gutter had no loose bodies. The knee was brought into some valgus stress in extension to open the medial compartment. A medial portal was made, localized by a spinal needle. The portal was created with an #11 blade through skin and capsule under direct visualization avoiding any meniscal injury. A probe was then inserted into the medial compartment. The medial compartment was fully inspected. The chondral surface of the tibia showed focal areas of grade III chondromalacia over the posterior tibia. And the surface of the femur showed similar focal grade III chondromalacia involving area about 1 cm? posteriorly. The medial meniscus had a complex meniscal tear which took some time to understand. There is an obvious loose fragment which was displaced near the root. Initially, I thought this was a very lateral tear of the meniscus. However, after probing it was found that the entire meniscal root was torn and there was some scarring into a mall reduced position. The posterior meniscus was totally unstable. A portion of the meniscus in the direct posterior aspect was intact. However, the posterior horn there is also a complex peripheral type tear measuring about 5 to 6 mm in length. There was a bridge of well attached meniscus between these 2 areas. Given our preoperative discussions I did not think meniscal root repair was desired by Meron. She did have grade III chondromalacia in this compartment and she does have obesity and a very laborious job. With these patient characteristics and her preoperative wishes proceeding with a meniscal root repair would not have been desired. I was going to attempt a direct repair to the capsule but the meniscal tissue quality was very poor and splintered with placement of an all inside device. Therefore this was aborted. The meniscus was then debrided of any loose fragments. Unfortunately, this removed a large portion of meniscus including the portion of the root and the horn. This was done using a shaver and biter. The meniscus was probed and there is no loose pieces. The notch was then inspected which showed an intact ACL and an intact PCL. The leg was then brought into a figure of 4 position. The lateral compartment was fully inspected with the arthroscope and a probe. The chondral surface of the lateral femur showed no significant chondromalacia. The chondral surface of the lateral tibia showed no significant chondromalacia. The lateral meniscus had no meniscal tear. The arthroscope was brought back into the suprapatellar pouch and the leg was in full extension. The knee was thoroughly irrigated with the arthroscopic fluid on high flow and pressure. Inflow was stopped and excess fluid was removed. The wounds were closed with 4-0 Nylon. They were dressed with Xeroform, 4x4 gauze, ABD pad, Kerlix and an MADELEINE wrap. A cryo-cuff was applied. The patient tolerated the procedure well and was returned to the Same Day Surgery area in a stable condition suffering no known complication.
== END 2019-05-04 17:41 | disposition home or self-care (01) ==
PROVIDERS: PCP Family Medicine; Visit Provider Student in an Organized Health Care Education/Training Program
PROC: (CPT 29870; principal; 2019-05-04 12:45)
DX: S83.231A Complex tear of medial meniscus, current injury, right knee, initial encounter (principal); S83.221A Peripheral tear of medial meniscus, current injury, right knee, initial encounter; X58.XXXA Exposure to other specified factors, initial encounter; M22.41 Chondromalacia patellae, right knee; G89.18 Other acute postprocedural pain; I10 Essential (primary) hypertension; E66.01 Morbid (severe) obesity due to excess calories; Z68.41 Body mass index [BMI] 40.0-44.9, adult
CPT/HCPCS: 29881; 76942; J0690; J1100; J1885; J2250; J2405; J3010; L8699

== ENCOUNTER 2019-10-24 15:43 | Outpatient (REF) | payer MEDICAID, SELFPAY ==
[2019-10-24 22:34] LABS: HGB 15.7 g/dL (12.0-15.5); Mean Corpuscular Hemoglobin 29.5 pg (27.0-33.0); Mean Corpuscular Volume 92.1 fL (80-95); Mean Platelet Volume 10.3 fL (8.0-11.0); Platelet Count 225 x1000/uL (130-400); RBC 5.32 m/cumm (4.00-5.20); RBC Distribution Width 12.9 % (11.7-14.6); White Blood Cell Count 5.32 k/cumm (4.4-10.8)
[2019-10-24 23:01] LABS: Anion Gap 12.5 mmol/L (3-11); BUN 14 mg/dL (7-18); CO2 24.5 mmol/L (21.0-32.0); CREATININE 0.57 mg/dL (0.55-1.02); Calcium 8.9 mg/dL (8.5-10.1); Chloride 106 mmol/L (98-107); Glucose 81 mg/dL (74-106); Potassium 4.5 mmol/L (3.5-5.1); Sodium 143 mmol/L (136-145)
== END 2019-10-24 16:03 ==
LOC: NCHCN 15:43
PROVIDERS: PCP Family Medicine; Visit Provider Family Medicine
DX: E03.9 Hypothyroidism, unspecified (principal); I10 Essential (primary) hypertension; Z13.0 Encounter for screening for diseases of the blood and blood-forming organs and certain disorders involving the immune mechanism
CPT/HCPCS: 80048; 85027; 84443

== ENCOUNTER 2019-10-25 13:19 | Outpatient (CLI) | payer MEDICAID, SELFPAY ==
--- NOTE | 2019-10-25 13:30 | DI.RAD_ITS ---
EXAM: XR STANDING ALIGNMENT INDICATION: TKA planning. COMPARISON: No exams were available for comparison TECHNIQUE: 2D digital imaging was performed. FINDINGS: Hip joint spaces are well maintained. There is no significant leg length discrepancy at the level of the femoral heads. There are advanced degenerative changes of the medial femorotibial joints and pe riarticular spurring. There is also narrowing of both medial ankle joints. IMPRESSION: Degenerative changes of both knees and medial ankles. No significant leg length discrepancy.
== END 2019-10-25 13:39 ==
PROVIDERS: PCP Family Medicine; Visit Provider Physician Assistant
DX: M17.0 Bilateral primary osteoarthritis of knee (principal); M19.071 Primary osteoarthritis, right ankle and foot; M19.072 Primary osteoarthritis, left ankle and foot
CPT/HCPCS: 77073

== ENCOUNTER 2019-10-25 14:03 | Outpatient (CLI) | payer MEDICAID, SELFPAY ==
--- NOTE | 2019-10-25 14:01 | W.PREOPHP ---
Date of service: 10/25/19 Assessment and Plan Assessment and plan (1) Primary osteoarthritis of right knee: Status: Acute Assessment and plan: Right total knee replacement. Details of surgery were discussed with patient as well as risks and prior anatomy. All questions were answered. History of Present Illness History of Present Illness Chief Complaint: Right knee pain Narrative: Meron is a 58-year-old female who comes in today for preop history and physical for a right total knee replacement. She had an injury to her right knee this summer when she had a twisting injury to her knee. She had a mixed bag of symptoms as well as findings on MRI of both meniscal pathology and arthritis. She ultimately had a right knee arthroscopy with partial medial meniscectomy that ended up with a slightly bigger and more complex tear than originally thought. It also involved the root of the meniscus. After the arthroscopy, she did not have a significant decrease in her symptoms, but they did become more arthritic in nature, and less mechanical from the meniscus. She has tried injection therapy since the surgery, but has not provided lasting relief. Since she has failed conservative treatment, and is a very active person as a chery, Dr. Esqueda does offer a total knee replacement. Patient is anxious to proceed. Pertinent Surgical Information Meron had general anesthesia here with a right knee arthroscopy on 05/04/2019 and did well. Patient denies history of CVA, MA, angina, asthma, COPD, renal or liver disorders, hepatitis, bleeding disorders, diabetes, immune or thyroid disorders. No complications from anesthesia. Review of Systems Constitutional Constitutional: Denies fever(s) ENT Ears, Nose, Mouth, and Throat: Denies dizziness and Denies sore throat Cardiovascular Cardiovascular: Denies chest pain, Denies palpitations and Denies dyspnea Respiratory Respiratory: Denies cough and Denies dyspnea Gastrointestinal Gastrointestinal: Denies abdominal pain, Denies melena, Denies hematochezia, Denies diarrhea, Denies nausea and Denies vomiting Genitourinary Genitourinary: Denies hematuria and Denies dysuria Neurologic Neurologic: Denies dizziness Endocrine Endocrine: Denies palpitations [facility] Medical History (Updated 10/25/19 @ 12:56 by VELASQUEZ Martins) Asthma (Chronic) Rarely uses her inhaler Atypical chest pain Colorectal polyps (Acute ~10/31/18) Depression Diverticulosis (Acute ~10/31/18) Family history of colon cancer Family history of diabetes mellitus Family history of early CAD Grief reaction Hypertension Hypothyroidism Morbid obesity Plantar fasciitis Surgical History (Updated 10/25/19 @ 12:56 by VELASQUEZ Martins) History of appendectomy (Chronic) History of arthroscopic knee surgery (Chronic) History of hysterectomy (Chronic) History of tonsillectomy (Chronic) S/P colonoscopy (Inactive ~10/31/18) Status post arthroscopy of right knee (Inactive 05/04/19) Partial medial meniscectomy Dr. Esqueda Social History Smoking/Tobacco Use Status: Never Alcohol Intake: current Alcohol Intake frequency: holidays/special occasions only Alcohol type: wine Drug use: Never Substance use type: does not use Current gender identity: female Do you feel safe at home: Yes Do you feel safe in your relationship?: Yes Meds Home Medications and Allergies Home Medications Medication Instructions Recorded Confirmed Type albuterol sulfate [ProAir HFA] 2 puff INHALATION Q4H PRN inhaler 05/20/18 10/25/19 History NS bupropion HCl [Wellbutrin XL] 150 mg PO DAILY tab-cap NS 05/20/18 10/25/19 History fluticasone propionate 2 puff NS DAILY PRN spray NS 05/20/18 10/25/19 History levothyroxine 112 mcg PO DAILY tab-cap NS 05/20/18 10/25/19 History multivitamin 1 tab PO DAILY 09/04/18 10/25/19 History lisinopril 10 mg tablet 10 mg PO DAILY 10/21/18 10/25/19 History oxycodone 5 mg PO Q4H #12 tab 05/04/19 10/25/19 Rx Allergies Allergy/AdvReac Type Severity Reaction Status Date / Time Sulfa (Sulfonamide Allergy Unverified 10/25/19 13:00 Antibiotics) Exam [facility] Head: normocephalic and atraumatic General nose exam: no nasal discharge Throat: uvula midline and no uvular edema Other: soft palate rises symmetrically, no erythema Eyes Conjunctivae: conjunctivae normal Sclera: sclerae normal Pupils: PERRL Resp Effort & Inspection: normal respiratory effort Auscultation: clear to auscultation bilaterally and no wheezes Cardio Rate: regular rate Rhythm: regular rhythm Heart Sounds: S1 normal, S2 normal and no murmurs GI Palpation: soft, no hepatosplenomegaly and nontender Auscultation: normal bowel sounds
== END 2019-10-25 14:23 ==
PROVIDERS: PCP Family Medicine; Visit Provider Student in an Organized Health Care Education/Training Program
DX: M17.11 Unilateral primary osteoarthritis, right knee (principal); Z01.818 Encounter for other preprocedural examination
CPT/HCPCS: NC

== ENCOUNTER 2019-11-01 06:13 | Inpatient (IN) | payer MEDICAID, SELFPAY ==
[2019-10-25 14:21] VITALS: BP 140/80; PULSE 82; O2SAT 98
[2019-11-01] VITALS (16 sets, daily range): BP systolic 103–148; BP diastolic 58–87; PULSE 43–70; RESP 12–18; TEMP 36.2–36.7; O2SAT 94–100
[2019-11-01] MEDS: Acetaminophen 500 MG TAB 1000 MG PO ×3 (06:45→19:15)
[2019-11-01] MEDS: Celecoxib 200 MG CAP 400 MG PO (06:45)
[2019-11-01] MEDS: Gabapentin 300 MG CAP PO ×2 (06:45→21:25)
[2019-11-01] MEDS: Lactated Ringers 1,000 ML 80 ML IV ×2 (07:02→21:25)
[2019-11-01] MEDS: Bupivacaine 0.25% Pres-Free 30 ML VIAL ×2 (07:25→09:08)
[2019-11-01] MEDS: ceFAZolin 2 GM/50 ML BAG IVPB (07:49)
[2019-11-01] MEDS: Normal Saline 20 ML VIAL (09:08)
[2019-11-01] MEDS: Ketorolac 30 MG/ML VIAL (09:08)
--- NOTE | 2019-11-01 10:23 | W.PM.OP ---
Date of service: 11/01/19 Time of Service: 10:02 Operative Note Operative Note DATE OF PROCEDURE: 11/01/19 PRE-OP DIAGNOSIS: Right Knee Osteoarthritis POST-OP DIAGNOSIS: same PROCEDURE: Right Total Knee Replacement SURGEON: Brett Esqueda ADMITTING OFFICER: Galina Raines ANESTHESIA: regional and spinal ESTIMATED BLOOD LOSS: 200 PATHOLOGY: none sent TOURNIQUET TIME: 37 COMPLICATIONS: None Patient was transported to: PACU Patient's condition: stable Implants: 1. Depuy Attune Posterior Stabilized Femoral Component, Size 6 Narrow 2. Depuy Attune Fixed Platform Tibial Component, Size 4 3. Depuy Attune 6x7mm Fixed, Stabilized Poly 4. Depuy Attune Patellar Component, Size 32mm Indications: I have seen Meron in clinic for symptoms of RIGHT knee arthritis, confirmed with radiographic findings. Meron has exhausted nonoperative methods and was having significant limitations in daily function and desired better function and less pain. I discussed the technical details of a knee replacement. I explained the risks of the procedure to include, but not limited to, bleeding, infection, pain, stiffness, fracture, damage to nerves and vessels, damage to muscles and tendons, loosening, need for repeat procedure, blood clot and cardiopulmonary demise. Despite these risks, Meron elected to proceed. Findings: The medial femur had eburnation and loss of cartilage throughout. The medial tibia likewise had central thinning of cartilage and the lateral femur had a central area of Grade III chondromalacia. The patella had Grade III cartilage loss globally. Procedure Description: Meron was greeted in the preoperative holding area where the correct side was identified and marked. The consent was reviewed with the patient and signed. The history and physical was updated. All questions were answered. Preoperative mediacations were administered: Acetaminophen 1000mg, Celebrex 400mg, and Gabapentin 300mg. An adductor canal block was then administered by the anesthesia team in the PACU. Meron was taken back to the operating room. A spinal anesthestic was then administered. The patient was placed into the supine position on the operating room table. A nonsterile tourniquet was placed high onto the leg but only used for cementing. Posts were placed for positioning during the procedure. All bony prominences were well padded. Prophylactic antibiotics in the form of Cefazolin were administered. 1g of Tranxemic Acid was given intravenously within 30 minutes of incision. The right leg was then prepped with Chloraprep and draped in a standard fashion with impervious stockinette. A second prep with Chloraprep was performed prior to application of Iodine impregnated skin protection. A timeout to confirm correct identity, side and site, procedure, allergies, anesthesia, and medical concerns was performed. With the knee in some flexion, a midline incision was made overlying the knee. Full thickness skin flaps were raised once the extensor mechanism was encountered. These were raised medially and laterally. Any bleeding was controlled with electrocautery. Once the extensor mechanism was fully exposed, a medial parapatellar arthrotomy was performed in a flexed position. All bleeding from the arthrotomy and the geniculate arteries was coagulated. A medial subperiosteal peel was performed with electrocautery to the midcoronal plane. The fat pad was removed while keeping the patellar tendon protected. The anterior distal femur synovium was removed for later visualization. The ACL and PCL were resected and the anterior horn of the lateral meniscus was transected. The knee was then flexed with the patella everted. Meron started to complain of some pain and began moving her foot and leg at this time and was thus made deeper with IV anesthesia. Using a step drill, and based on preoperative templating, the femoral canal was entered. This was done with a step drill without any difficulty. The intramedullary distal femoral cut guide was inserted, set to a 5 degree valgus cut and 9mm cut thickness. There was some hypoplasia of the lateral femoral condyle and any remnant cartilage of the medial femoral condyle was removed for appropriate thickness. The distal femoral cut guide was then held in position and pinned. With the soft tissues protected, the distal cut was performed. This was passed over a few times to ensure a planar cut. I then turned attention to the tibia. The extramedullary guide was placed onto the leg. The distal aspect was slid medial to adjust for position of center of ankle and stay in line with shaft of the tibia. Approximately 3-5 degrees of posterior slope was kept in the proximal cutting guide. The center of the guide was aligned with the PCL. The stylus was used to assess cut thickness. The medial side, most involved side, was set for a 4mm cut which corresponded to a 9mm cut laterally. This was then held in position and pinned into place with 2 additional pins and a cross pin for stability. The medial and lateral collateral ligaments were protected and the cut was performed. With this completed, it was assessed and noted to be of appropriate dimensions. The guide was removed. A spacer block was inserted and the knee was brought into extension. The 7mm spacer block provided full extension, without hyperextension and with stability of both the medial and lateral collateral ligaments was assessed. The pins from the femur and the tibia were then removed. The distal femur was then sized. The anterior stylus was placed onto the lateral ridge of the anterior femur. This indicated a size 6 narrow femur. The external rotation of the guide was adjusted to 3 degrees to match the epicondylar axis, perpendicular to [place]?s line. The 4-in-1 cutting guide was the placed. The posterior medial femur cut was evaluated and appeared of good thickness. The spacer block was inserted underneath the cutting guide and stability was confirmed in 90 degrees of flexion. An mary wing was used to confirm appropriate position of the anterior cut to avoid notching. This cutting guide was ensured to be flush on the cut surface and then pinned into place with headed pins. While protecting the soft tissues, quad tendon, and collateral ligaments, the anterior and posterior cuts were performed with a saw. The central two pins were removed and the posterior and anterior chamfers were cut next. The notch-cutting guide was placed. This was pinned to lateralize the femoral component as much as possible while keeping it flush on the cut surface. This was then pinned into position. A reciprocating saw was used to make the notch cut. A rasp smoothed the cut surfaces. A trial posterior stabilized femoral component was then inserted, impacted down to the cut surfaces, and the lug holes were drilled. A provisional trial tibial component was placed and the knee was brought through range of motion. There was noted to be excellent extension and flexion. There was no significant instability. The patella was tracking without thumbs. The tibial cut surface was fully exposed. The medial and lateral menisci were removed. The tibia was then sized as a 4. The tibia had been previously marked during trialing to correspond to the center of the tibial component to help with rotation. The trial was aligned to this fabiola, approximately rotated to the medial 1/3rd of the tibial tubercle. The trial was pinned into place. The tibia was prepared with a reamer and a keel punch. The knee was then brought into extension and the patella was measured as 22mm. Using the patellar clamp and cut guide, this was resected to a flat surface with at least 13mm of thickness remaining. The size 32mm patella fit the best. This was oriented and then clamped into position. The lugs were drilled. The trial components were removed. The final components, except for the polyethylene were opened on the back table. The periosteal and capsular tissues, especially posteriorly, around the knee were then systematically injected with a periarticular cocktail consisting of 50cc 0.25% Marcaine, 30mg Ketorolac, 20cc of Exparal and 50cc of injectable saline. The tourniquet was then inflated to 275mmHg. The knee was thoroughly irrigated with a pulse lavage and dried. On the back table, with the implants opened, the cement was mixed. 2 batches of antibiotic laden cement were prepared with vacuum assistance. After the cement was ready a small amount was placed on to the back side of the tibial component at the keel. A small amount was placed onto the posterior flange of the femur. Cement was manual pressurized and impregnated into the cut surface of the tibia. The tibial component was then inserted into the cut surface and impacted into position. Excess cement was removed and the component was reimpacted. Again, excess cement was removed and our attention was then turned to the femur. The femoral cut surface was once again dried and cement was manually impacted into the cut surface. The femoral component was lined with the lug holes and impacted. Excess cement was removed. It was ensured to be down against the cut surface. The trial polyethylene was then inserted and the leg was brought out into full extension for the duration of the cement curing process, approximately 15min. Cement was lastly manually impacted into the cut surface of the patella and the patellar button was clamped into position and held. During this process attention was turned to the gutters of the knee and for all interfaces for any excess cement. While the cement was hardening, the knee was irrigated with Irrisept chlorhexadine solution. This was allowed to sit in the knee for 3 minutes. After the cement had finally cured, approximately 15min, the clamp was removed from the patella and the knee was taken through range of motion. A size 7mm polyethylene component provided the best range of motion and stability with less than 2mm gapping with medial and lateral stress and full extension without significant hyperextension. The patella was tracking with a no-thumbs technique. The trial poly was removed and once again the knee was checked for any loose, excess, or errant cement. The poly component was then inserted and impacted into position after cleaning and drying the tibial tray. The capsule was then reapproximated with a No. 1 Vicryl at multiple locations. The capsule was finally closed with a No. 2 Stratafix, barbed suture. The tourniquet was then released and the arthrotomy appeared watertight without significant bleeding. The second dosing of 1g TXA was started. Deep tissues were then reapproximated with 0 Vicryl and 2-0 Vicryl. The skin was closed with a running 3-0 Monocryl in a subcuticular fashion. This was reinforced with skin glue. A Mepilex silver dressing was applied along with a [id number] MADELEINE wrap. A CryoCuff was applied. Meron was transferred to the hospital bed without difficulty an suffering no apparent complication. Meron has a good prognosis. Physical therapy will start today and without restrictions, weight-bearing as tolerated. Aspirin 81mg BID will be used for DVT prophylaxis.
[2019-11-01] MEDS: Normal Saline Flush 10 ML SYR IV ×2 (11:06→15:27)
[2019-11-01] MEDS: HYDROmorphone 2 MG/ML VIAL IVP (11:06)
[2019-11-01] MEDS: HYDROmorphone 2 MG TAB PO (12:03)
--- NOTE | 2019-11-01 14:12 | W.NUTCONSULT ---
Date of service: 11/01/19 Time of Service: 14:12 Nutritional Consult ASSESSMENT: 59 year old female s/p right knee replacement. Following regular diet with adequate intake. BMI indicates class 3 obesity. Met with resident and provided contact information for outpatient weight management counseling. Meron receptive to losing weight and making life style changes. INTERVENTION: provided contact information for outpatient nutrition counseling. MONITORING AND EVALUATION: weight, po intake Time Spent in Nutritional Counseling and Treatment: 5 min spent face to face
[2019-11-01] MEDS: ceFAZolin 1 GM/50 ML BAG IVPB ×2 (15:23→23:50)
--- NOTE | 2019-11-01 16:15 | PT.INIE ---
Date of service: 11/01/19 Time of Service: 14:45 PT Notes Visit Reasons: R KNEE DJD Physical Therapy Inpatient Initial Evaluation Date: 11/01/2019 Referring Doctor: Brett Esqueda M.D. PT Orders: PT CONSULT: s/p ortho surgery Precautions: Fall. Standard. Activity as tolerated. Patient Profile/Admitting Diagnosis: Pt is a 59-year-old with a history of DJD and OA of the R knee presenting with R TKA on post-operative day 0. PMHX: Medical History (Updated 10/25/19 @ 12:56 by VELASQUEZ Martins) Asthma (Chronic) Rarely uses her inhaler Atypical chest pain Colorectal polyps (Acute ~10/31/18) Depression Diverticulosis (Acute ~10/31/18) Family history of colon cancer Family history of diabetes mellitus Family history of early CAD Grief reaction Hypertension Hypothyroidism Morbid obesity Plantar fasciitis Surgical History (Updated 10/25/19 @ 12:56 by VELASQUEZ Martins) History of appendectomy (Chronic) History of arthroscopic knee surgery (Chronic) History of hysterectomy (Chronic) History of tonsillectomy (Chronic) S/P colonoscopy (Inactive ~10/31/18) Status post arthroscopy of right knee (Inactive 05/04/19) Partial medial meniscectomy Dr. Esqueda Social History/Home Situation: [place] She reports having three steps to enter the home. Notes that she has a bed on the first floor while she is recovering and an electric recliner that she is able to use as well. 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 Per medical records, the pain began with a twisting injury last summer. She was seen at [facility] for physical therapy and attempted injections for pain relief. Has a history of a partial medial meniscectomy, but did not relieve the pain. At the time of the initial evaluation the pt reports that she is feeling lightheaded/dizzy and nauseous. Pt became teary eyed/emotional while testing strength of LE. She denied increases in pain. Objective: General Observation: Cavazos catheter in place. IV line on LUE, detached by nurse prior to ambulation. Mental Status: alert and oriented x4 Pain: 4/10 lying in bed Vital Signs: Supine: BP 147/83 mmHg, HR 70 bpm, SpO2 97% Sitting: BP 168/89 mmHg, HR 71 bpm, SpO2 97% Standing: BP 137/88 mmHg, HR 82 bpm, SpO2 99% ROM: Right Upper Extremity: Shoulder Flexion WFL. Shoulder abduction WFL. Elbow flexion WFL. Wrist flexion WFL. Opening and closing of hand WFL. Left Upper Extremity: Shoulder Flexion WFL. Shoulder abduction WFL. Elbow flexion WFL. Wrist flexion WFL. Opening and closing of hand WFL. Right Lower Extremity: Hip flexion WFL. Hip abduction WFL. Knee flexion 70 degrees (complains of increased pain to 5/10). Knee extension -25 degrees. Ankle dorsiflexion WFL. Ankle plantarflexion WFL. Left Lower Extremity: Hip flexion WFL. Hip abduction WFL. Knee flexion WFL. Ankle dorsiflexion WFL. Ankle plantarflexion WFL. Strength: Right Upper Extremity: Shoulder flexors 5/5. Shoulder abductors 5/5. Elbow flexors 5/5. Elbow extensors 5/5. Clinical Engineering Director strong. Left Upper Extremity: Shoulder flexors 5/5. Shoulder abductors 5/5. Elbow flexors 5/5. Elbow extensors 5/5. Clinical Engineering Director strong. Right Lower Extremity: Hip flexors 3-/5. Hip abductors 5/5. Knee flexors 3-/5. Knee extensors 3-/5. Ankle dorsiflexors 5/5. Ankle plantarflexors 5/5. Left Lower Extremity: Hip flexors 5/5. Hip abductors 5/5. Knee flexors 5/5. Knee extensors 5/5. Ankle dorsiflexors 5/5. Ankle plantarflexors 5/5. Sensation: Intact as to pain and pressure on bilateral lower extremities. Bed Mobility/Transfers: Rolling supervision Supine to sit supervision with HOB flat. Complains of increased dizziness and nausea. Sit to supine supervision with HOB flat Sit to stand SBA. Complains of dizziness. Stand to sit SBA Bed to chair SBA Chair to bed SBA Gait: Pt was initially hesitant to begin walking. She was able to ambulate WBAT on the R 60 feet using a two-wheeled walker. Step to gait pattern. Asymmetrical step length and height. CGA by PT and follow behind with wheelchair by PT student. Complains of cramping pain in right thigh. Pt denies increase in pain, nausea, dizziness. Balance: Static Sitting: Normal Dynamic Sitting: Normal Static Standing: Fair Dynamic Standing: Fair Special Tests: Mobility Limitations Standardized Measure [facility] 6 clicks Basic Mobility Inpatient Short Form: Raw Score: 21 CMS Score: 29% deficit Informed Consent/Education: Patient instructed in purpose of PT consult and plan of care. HEP including qluteus squeezes, quadriceps sets, and ankle pumps. Assessment: Pt is a 59-year-old with a history of DJD and OA of the R knee presenting with R TKA on post-operative day 0. Pt presents on initial evaluation with impairment level findings and functional limitations as listed below requiring skilled physical therapy services at this time. Patient presents with clinical signs and symptoms consistent with current/admitting diagnoses that have resulted to mobility limitations, gait instability, generalized weakness, and impairment of motor control as demonstrated by the following impairment level findings: 1. Decreased strength to R LE hip and knee major muscle groups 2. Impaired standing balance 3. Impaired activity tolerance 4. Limitation of joint range of motion in right knee Impairments are contributing to the following functional limitations: 1. Increased dependence with transfers 2. Inability to safely ambulate without assistive device and physical assistance 3. Increase completion time for mobility ADL performance 4. Increased fall risk 5. Inability to negotiate steps alone safely Patient is assessed as a 11996 moderate complexity based on the following: History: Pt is a 59-year-old with a history of DJD and OA of the R knee presenting with R TKA on surgical date zero. Pt presents on initial evaluation with impairment level findings and functional limitations as listed above. AM-PAC raw score of 21 indicating 29% deficit. Examination: Demonstrable impairment in strength, balance, and range of motion with underlying impairments and functional limitations as documented above Presentation: Evolving Decision Makin moderate complexity Goals: Goals X1 week 1. Supine-Sit independent 2. Sit-Supine independent 3. Sit-Stand independent 4. Stand-Sit independent 5. Bed-Chair independent 6. Chair-Bed independent 7. Independent gait on level surface with use of least restrictive device for at least 300 feet without report of pain nor dyspnea 8. Independent stair negotiation while holding onto bilateral rails for at least 10 steps without report of pain nor dyspnea 9. Independent with home exercise program 10. Good static and dynamic standing balance/tolerance Plan of Care/Treatment Plan: 1-2x/day, 7 days/week x 1 week. Plan of care has been reviewed with the PRODUCT MANAGEMENT ANALYST providing the service under Physical Therapy direction. Initiate Physical Therapy intervention for strengthening, bed mobility, transfers, gait, stairs, balance training, use of assistive device. DISCHARGE RECOMMENDATIONS: Discharge to home when medically cleared with four-wheeled walker. TREATMENT CODE/TIME: 76361 x 35 minutes beginning 14:20 P.M. Thank you very much for this referral. Lynn Tarango, SPT Doctor of Physical Therapy Student [facility] Supervision provided by Meryl Knight PT, DPT, CLT [facility] [place], [place]
[2019-11-01] MEDS: Aspirin E.C. 81 MG TABEC PO (19:15)
[2019-11-01] MEDS: Celecoxib 200 MG CAP PO (19:15)
[2019-11-01] MEDS: HYDROmorphone 2 MG/ML VIAL 0.5 MG IVP (19:20)
[2019-11-02 03:29] VITALS: BP 132/75; PULSE 62; RESP 18; TEMP 36.8; O2SAT 97
[2019-11-02] MEDS: HYDROmorphone 2 MG/ML VIAL 0.5 MG IVP ×5 (05:31→18:24)
[2019-11-02] MEDS: Levothyroxine 112 MCG TAB PO (05:32)
[2019-11-02] MEDS: Ondansetron 4 MG/2 ML VIAL IVP ×2 (05:32→10:53)
[2019-11-02] MEDS: Normal Saline Flush 10 ML SYR IV ×4 (05:32→18:25)
[2019-11-02] MEDS: Acetaminophen 500 MG TAB 1000 MG PO ×3 (07:21→19:46)
[2019-11-02] MEDS: Pantoprazole 40 MG TABCR PO (07:21)
[2019-11-02] MEDS: Celecoxib 200 MG CAP PO ×2 (07:21→19:47)
[2019-11-02] MEDS: HYDROmorphone 2 MG TAB PO ×4 (07:24→21:25)
[2019-11-02 07:26] VITALS: BP 150/92; PULSE 68; RESP 18; TEMP 37; O2SAT 98
[2019-11-02] MEDS: Aspirin E.C. 81 MG TABEC PO ×2 (07:47→19:47)
[2019-11-02] MEDS: buPROPion-XL 150 MG TABCR PO (07:47)
[2019-11-02] MEDS: ceFAZolin 1 GM/50 ML BAG IVPB (07:47)
[2019-11-02] MEDS: Lisinopril 10 MG TAB PO (07:48)
[2019-11-02] MEDS: Multivitamin TAB 1 TAB PO (07:48)
[2019-11-02 11:25] VITALS: BP 117/77; PULSE 56; RESP 17; TEMP 36.6; O2SAT 97
--- NOTE | 2019-11-02 15:25 | PT.INTREAT ---
Date of service: 11/02/19 Time of Service: 15:25 PT Notes Visit Reasons: R KNEE DJD Inpatient Physical Therapy Treatment Note [facility] Date: 11/02/2019 PRECAUTIONS: Fall, WBAT R SUBJECTIVE: Marco reports that she has been having significant right knee pain, she feels that she got behind on her pain meds during the night and has been trying to play catch up throughout today. OBJECTIVE: PAIN: Patient complained of right knee pain while at rest, and with all PT activity BED MOBILITY/TRANSFERS Supine-sit: S with HOB flat in a.m.; I in p.m. Sit-supine: I with HOB flat Sit-stand: SBA Stand-sit: SBA GAIT Assistive Device: FWW Weight bearing: WBAT R Assist: SBA Distance: 60' x2 in a.m.; 150' in p.m. Deviation: Step through instruction, cueing for continuous FWW advancement, increased right knee pain THEREX: Patient completed a lower extremity strengthening and stabilization program, in a supine position, as per flow sheet. Patient complained of increased right knee pain with there ex completion. She ends with Cryo/Cuff to right knee. STAIRS: Up/down 3?4 and 2?6 using B rails and a step to pattern with SBA ASSESSMENT: Patient tolerated session with complaint of significantly increased right knee pain with all PT activity. She was able to demonstrate an increase in gait distance with FWW support and SBA. She requires step through instruction as well as cueing for continuous FWW advancement. She would benefit from continued gait and transfer training as well as strengthening for improved mobility. PLAN: Continue with PT's POC TREATMENT CODE/TIME: Session 1: 45 minutes; [id number] x2, [id number] Session 2: 40 minutes; [id number] x2, [id number]
[2019-11-02] MEDS: Docusate Sodium 100 MG CAP PO (15:34)
[2019-11-02] MEDS: Polyethylene Glycol 3350 17 GM PACKET PO (15:34)
--- NOTE | 2019-11-02 16:19 | NUR.NOTE ---
Nursing Note: picked up patient from day nurse who had to leave around 1045. Patient alert and oriented in a lot of pain. Patient sitting in chair. Patient appears to be having anxiety at this time. Patient reports she doesn't know whats going on as patient sobs. Patient appears to be having pain and feels like shes not managing it properly. Patient reassured and educated on using the call weems for pain control instead of needing to manage it on her own. Patient given IV hydromorphone with relief.
[2019-11-02 16:20] VITALS: BP 121/68; PULSE 67; RESP 18; TEMP 37.1; O2SAT 98
--- NOTE | 2019-11-02 16:48 | PDOC.CMIN ---
- If Service Date Differs Date of service: 11/02/19 Time of Service: 16:48 Care Management Initial Assess REASON FOR HOSPITALIZATION:: Right knee replacement. PAST MEDICAL HISTORY/PAST SURGICAL HISTORY:: Medical/Surgical History: Colonoscopy, primary osteoarthritis of right knee, colorectal polyps, and diverticulosis. 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 The couple has two adult daughters who are supportive. Meron is independent with her ADLs at baseline. She shares she lives in a two story home but will be sleeping in the living room on the first floor while she recuperates from her surgery. The house has two front steps, which can be a bit challenging, but she states her is building a platform to cover the steps and make it easier for her to get into the home. CURRENT FUNCTIONAL STATUS:: Meron is lying in bed watching television when CM comes to meet with her. Her daughter is present in the room. Meron is pleasant and readily engages in conversation. 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 ADVANCE DIRECTIVES:: None on file; CM provides Advance Directive form to patient to complete, at her request. Has patient been provided with information about the portal?: Yes Did the patient sign up for the portal?: Yes (Already enrolled.) CODE STATUS:: Full Code INSURANCE COVERAGE / FINANCIAL ISSUES:: Medicaid. CURRENT HOME/COMMUNITY SERVICES/EQUIPMENT:: Meron has a cleaning lady who vacuums and dusts her home every two weeks. She states she has a raised toilet seat with grab bars and a shower chair at home. CM coordinates a FWW through [employer]. PRIMARY CARE PHYSICIAN:: Caron Triplett MD ([facility]) POTENTIAL DISCHARGE NEEDS:: Follow-up appointments with Dr. Esqueda, surgeon, and primary care physician. PATIENT/FAMILY EDUCATION NEEDS:: Discharge plan, limitations, follow-up plan of care, including Ask Me Three and self-management. ANTICIPATED BARRIERS TO DISCHARGE:: No anticipated barriers at this time. TRANSPORTATION:: Via private vehicle by family member. PLAN:: Meron will be discharged home when medically cleared by provider. Anticipate no new services at time of discharge. CM coordinates FWW through [employer]. Meron has all other necessary DME at home. Her daughter will transport her home via private vehicle when ready. CM continues to follow.
--- NOTE | 2019-11-02 18:04 | NUR.NOTE ---
Nursing Note: Pt was so anxious about her scheduled tylenol and other pain med. Daughter writing on the board. 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 Supper tray was on bedside , pt asked to leave it there for now. OOB to toilet with walker, reported of so much pain, refused to stay on the chair for meal. Medicated with dilaudid IVP and tray was set up by daughter on bed.
[2019-11-02 20:23] VITALS: BP 141/80; PULSE 71; RESP 18; TEMP 37; O2SAT 95
[2019-11-02] MEDS: Gabapentin 300 MG CAP PO (21:25)
--- NOTE | 2019-11-02 22:09 | W.PM.PROGNOT ---
Date of Service Date of service: 11/02/19 Time of Service: 12:54 Assessment and Plan Assessment and plan (1) Primary osteoarthritis of right knee: Status: Acute Assessment and plan: Meron is a 59-year-old with right knee osteoarthritis status post knee replacement. She is doing well. Will increase her Dilaudid from 2 to 2-4. I just think were not treating the pain fully. I am hopeful that this will allow us to get ahead of her pain and allow her to work more fully physical therapy although she has done well with therapy. Likely discharge home tomorrow. Subjective Subjective Interval history since last seen: Meron has continued to have some pain. She has been able to mobilize with physical therapy but reports significant pain. His pain is primarily over the medial aspect of the knee as well as the lateral aspect to a lesser extent. No fevers or chills. No other issues. Exam Narrative Exam Narrative: Evaluation of the right knee shows excellent extension and nearly 0 degrees. Tolerates about 70 degrees of flexion. Aden wrap is removed. Mild swelling and ecchymosis medially. No drainage on the dressing. Reluctant to straight leg raise due to pain. Objective Objective Clinical Data: Vital Signs Temperature 37.0 C 11/02/19 20:23 Temperature Source Tympanic 11/02/19 20:23 Pulse 71 11/02/19 20:23 Pulse Rhythm Regular 11/02/19 19:48 Respiratory Rate 18 11/02/19 20:23 Respiratory Effort Non-Labored 11/02/19 19:48 Respiratory Depth Normal 11/02/19 19:48 Respiratory Pattern Normal 11/02/19 19:48 Blood Pressure 141/80 H 11/02/19 20:23 Pulse Oximetry 95 11/02/19 20:23 Respiratory End-tidal CO2 38 11/01/19 10:59 Oxygen Delivery Method Room Air 11/02/19 20:23 Oxygen Flow Rate 0 11/02/19 20:23 Pain Level 0 11/02/19 20:23 Intake & Output 11/01/19 11/02/19 11/02/19 23:59 11:59 23:59 Intake Total 1040.000 / 1710.000 884.667 / 2199.334 1314.667 / 2199.334 Output Total 1150 / 1500 1000 / 1600 600 / 1600 Balance -110.000 / 210.000 -115.333 / 599.334 714.667 / 599.334 Intake: IV 550.000 / 1220.000 884.667 / 1719.334 834.667 / 1719.334 Oral 490 / 490 480 / 480 Output: Urine 1150 / 1300 1000 / 1600 600 / 1600 Other: Urine Color Yellow Yellow Light Princess Urine Appearance Clear Clear Clear Urine Odor None Normal Comment teresa not in at this time. Appears to have been removed by prior nurse. Voiding Methods Toilet Toilet
[2019-11-02 23:39] VITALS: BP 122/68; PULSE 61; RESP 18; TEMP 37.1; O2SAT 96
[2019-11-03] MEDS: HYDROmorphone 2 MG TAB PO ×5 (00:16→11:45)
[2019-11-03 04:00] VITALS: BP 122/71; PULSE 60; RESP 16; TEMP 36.7; O2SAT 96
[2019-11-03] MEDS: Docusate Sodium 100 MG CAP PO (04:24)
--- NOTE | 2019-11-03 05:39 | DSE_ITS ---
DS: Diagnosis Discharge Diagnosis (1) Primary osteoarthritis of right knee: Status: Acute Discharge Plan Disposition Patient Disposition: HOME Condition: Improving Discharge Details Reason For Visit: R KNEE DJD Admit Date/Time: 11/01/19 06:13 Admit Provider: Brett Esqueda Attending Provider: Brett Esqueda Primary Care Provider: Caron Triplett Hospital Course Hospital Course: Patient was admitted to the medical/surgical floor following the procedure. It was tolerated well without any notable medical, surgical, or anesthetic complications. Mobilization began postoperatively. The teresa catheter was removed and voiding spontaneously. Vitals were stable. Pain control was difficult initially. This required an increase to 2-4mg of Hydromorphone but this did help with pain control to a manageable level. Physical therapy worked with the patient and was cleared for discharge home. No acute medical issues. Home Meds and New Rx's Prescriptions: New aspirin 81 mg tablet,delayed release (DR/EC) 81 mg PO BID Qty: 60 RF: 0 acetaminophen 500 mg tablet 1,000 mg PO Q8H PRN (Reason: pain) Qty: 90 RF: 3 hydromorphone 2 mg tablet 2 - 4 mg PO Q4H PRN (Reason: extreme pain) Qty: 18 RF: 0 gabapentin 300 mg capsule 300 mg PO QHS Qty: 7 RF: 0 ibuprofen 600 mg tablet 600 mg PO TID PRNQty: 90 RF: 3 pantoprazole 40 mg tablet,delayed release (DR/EC) 40 mg PO DAILY Qty: 30 RF: 0 Continued lisinopril 10 mg tablet 10 mg PO DAILY RF: 0 albuterol sulfate [ProAir HFA] 8.5 GM HFA aerosol inhaler 2 puff Inhalation Q4H PRN RF: 0 levothyroxine 112 MCG tablet 112 mcg PO DAILY RF: 0 bupropion HCl [Wellbutrin XL] 150 MG tablet extended release 24 hr 150 mg PO DAILY RF: 0 multivitamin Tablet 1 tab PO DAILY RF: 0 Discontinued oxycodone 5 mg tablet 5 mg PO Q4H Qty: 12 RF: 0 Discharge Instructions Additional Instructions: Dr. Esqueda?s Total Knee Discharge Instructions Activity: The most important activity is to walk. You should try to take short walks a few times a day. It is important that when resting you work on keeping the knee straight. Avoid putting a pillow behind the knee as this will encourage flexion. Work on range of motion exercises as provided by Physical Therapy. - Start outpatient physical therapy within 2 weeks. - You should wear the LYSSA hose on both legs for 2 weeks. Dressing: Keep the surgical dressing in place for at least one week. After the first week it may be removed and replace with light gauze and tape or nothing. It may get wet after 3 days but avoid soaking the dressing. If it gets wet, just lightly pat dry. Medications: - You should take Tylenol (1000mg three times a day) and anti-inflammatory Ibuprofen (600mg three times a day) as your primary pain control medications - You have been prescribed a stronger pain medication Hydromorphone (2-4mg every 4 hours) for breakthrough pain, take as needed as prescribed. - You have also been prescribed a stomach acid reduction agent Pantoprozole to help reduce stomach acid and reflux. - You have Gabapentin to take at nighttime for the first week which helps with some nerve pain and restlessness. - You will be taking Aspirin 81mg twice a day for DVT prevention unless instructed otherwise. - If you have constipation you should take Colace or Miralax (both [id number]). It takes most people 3-4 days to have a bowel movement. Follow-up: [address] Esqueda at his office during busines hours or on his cell phone, , after hours, for any questions or concerns. Stand Alone Forms: Nursing Discharge Form Referrals: [facility] [Provider Group] - 11/17/19 8:00 am () Brett Esqueda MD [ [facility]] - 11/16/19 11:00 am Activity:: Activity as Tolerated Equipment/Supplies:: Walker Diet:: As Tolerated DS: Summary Status at Discharge Functional status at discharge: uses cane/walker Overall status at discharge: patient is progressing back to baseline Mental Status: mental status grossly normal Speech and Movement: speech and movement normal Mood: congruent mood Affect: normal affect Exam Psych Mental Status: mental status grossly normal Speech and Movement: speech and movement normal Mood: congruent mood Affect: normal affect DS: Data Vitals/I&O Vitals and I&O: Vital Signs Temperature 37.1 C 11/02/19 23:39 Temperature Source Tympanic 11/02/19 23:39 Pulse 61 11/02/19 23:39 Pulse Rhythm Regular 11/03/19 02:56 Respiratory Rate 18 11/02/19 23:39 Respiratory Effort Non-Labored 11/03/19 02:56 Respiratory Depth Normal 11/03/19 02:56 Respiratory Pattern Normal 11/03/19 02:56 Blood Pressure 122/68 11/02/19 23:39 Pulse Oximetry 96 11/02/19 23:39 Respiratory End-tidal CO2 38 11/01/19 10:59 Oxygen Delivery Method Room Air 11/02/19 23:39 Oxygen Flow Rate 0 11/02/19 23:39 Pain Level 0 11/02/19 23:39 Intake & Output 11/02/19 11/02/19 11/03/19 11:59 23:59 11:59 Intake Total 884.667 / 2439.334 1554.667 / 2439.334 Output Total 1000 / 2350 1350 / 2350 Balance -115.333 / 89.334 204.667 / 89.334 Intake: IV 884.667 / 1719.334 834.667 / 1719.334 Oral 720 / 720 Output: Urine 1000 / 2350 1350 / 2350 Other: Urine Color Yellow Yellow Urine Appearance Clear Clear Clear Urine Odor None Normal Comment teresa not in at this time. Appears to have been removed by prior nurse. Voiding Methods Toilet Urinal PFSH Medical History Asthma (Chronic) Rarely uses her inhaler Atypical chest pain R/T TO RIB DISPLACEMENT PER PT. HAD CARDIAC WORK-UP EVERY THING CAME BACK NORMAL PER PT. Colorectal polyps (Acute ~10/31/18) Depression Diverticulosis (Acute ~10/31/18) Family history of colon cancer Family history of diabetes mellitus Family history of early CAD Grief reaction Hypertension Hypothyroidism Morbid obesity Plantar fasciitis Surgical History History of appendectomy (Chronic) History of arthroscopic knee surgery (Chronic) History of hysterectomy (Chronic) STILL HAS OVARIES History of tonsillectomy (Chronic) S/P colonoscopy (Inactive ~10/31/18) Status post arthroscopy of right knee (Inactive 05/04/19) Partial medial meniscectomy Dr. Esqueda Family History Other Diabetes Heart disease Social History Smoking/Tobacco Use Status: Never Alcohol Intake: current Alcohol Intake frequency: holidays/special occasions only Alcohol type: wine Drug use: Never Substance use type: does not use Current gender identity: female Do you feel safe at home: Yes Do you feel safe in your relationship?: Yes
[2019-11-03] MEDS: Levothyroxine 112 MCG TAB PO (05:53)
[2019-11-03] MEDS: Pantoprazole 40 MG TABCR PO (07:22)
[2019-11-03 07:25] VITALS: BP 129/71; PULSE 66; RESP 17; TEMP 36.7; O2SAT 97
[2019-11-03] MEDS: Acetaminophen 500 MG TAB 1000 MG PO ×2 (08:36→14:04)
[2019-11-03] MEDS: buPROPion-XL 150 MG TABCR PO (08:37)
[2019-11-03] MEDS: Celecoxib 200 MG CAP PO (08:37)
[2019-11-03] MEDS: Aspirin E.C. 81 MG TABEC PO (08:37)
[2019-11-03] MEDS: Multivitamin TAB 1 TAB PO (08:37)
[2019-11-03] MEDS: Lisinopril 10 MG TAB PO (08:37)
[2019-11-03] MEDS: Polyethylene Glycol 3350 17 GM PACKET PO (11:34)
[2019-11-03 11:41] VITALS: BP 121/74; PULSE 67; RESP 18; TEMP 36.8; O2SAT 100
--- NOTE | 2019-11-03 12:11 | PDOC.CMDIS ---
- If Service Date Differs Date of service: 11/03/19 Time of Service: 12:11 LACE Index Scoring Tool - Questions: Length of Stay (in days): 2 Acuity (Admit via E.D.?): No E.D. Visits: 2 - Answers: Total Score: 4 Risk of Readmission: Low Risk Care Management Discharge Reason for Hospitalization: Right knee replacement. Discharge Plan: Meron is discharged home. She will follow up with Dr. Esqueda, her primary care physician, and her plan of care as directed, including medication recommendations and activity limitations. CM coordinated FWW. She has all other DME needed. Her daughter is transporting her home via private vehicle. Patient/Family Education Needs: Nursing will review discharge instructions when Meron re medications and activity level. Meron is able to verbalize reason for hospitalization and how to manage care at home.
--- NOTE | 2019-11-03 13:05 | PT.INTREAT ---
Date of service: 11/03/19 Time of Service: 13:05 PT Notes Visit Reasons: R KNEE DJD Inpatient Physical Therapy Treatment Note [facility] Date: 11/03/2019 PRECAUTIONS: Fall, WBAT R SUBJECTIVE: Meron reports that she is feeling better and feels that she has had a break-through as far as pain management is concerned. She is excited to be returning to home this afternoon. OBJECTIVE: PAIN: Patient complained of right knee pain while at rest, and with all PT activity BED MOBILITY/TRANSFERS Supine-sit: I with HOB flat Sit-supine: I with HOB flat Sit-stand: S Stand-sit: S GAIT Assistive Device: FWW Weight bearing: WBAT R Assist: SBA Distance: 175' Deviation: Step through instruction, cueing for continuous FWW advancement, increased right knee pain THEREX: Patient completed a lower extremity strengthening and stabilization program, in a supine position, as per flow sheet. Patient complained of increased right knee pain with there ex completion. She ends with Cryo/Cuff to right knee. STAIRS: Up/down 3?4 and 2?6 using B rails and a step to pattern, independently ASSESSMENT: Patient tolerated session with complaint of slightly increased right knee pain with all PT activity. She was able to demonstrate an increase in gait distance with FWW support and SBA. She requires step through instruction as well as cueing for continuous FWW advancement. She would benefit from continued gait and transfer training as well as strengthening for improved mobility. PLAN: As per primary PT TREATMENT CODE/TIME: Session 1: 30 minutes; [id number], [id number]
--- NOTE | 2019-11-06 08:43 | PT.INDS ---
Date of service: 11/06/19 Time of Service: 08:43 PT Notes Visit Reasons: R KNEE DJD Inpatient Physical Therapy Discharge Summary Dates: 11/06/2019 Dates of Service: through 11/03/2019 This is a clinical summary of care provided on the duration of dates listed above. No charge was made in the completion of this documentation. Referring Doctor: Brett Esqueda M.D. PT Orders: PT CONSULT: s/p ortho surgery Precautions: Fall. Standard. Activity as tolerated. Patient Profile/Admitting Diagnosis: Pt is a 59-year-old with a history of DJD and OA of the R knee presenting with R TKA on post-operative day 2. PMHX: Medical History (Updated 10/25/19 @ 12:56 by VELASQUEZ Martins) Asthma (Chronic) Rarely uses her inhaler Atypical chest pain Colorectal polyps (Acute ~10/31/18) Depression Diverticulosis (Acute ~10/31/18) Family history of colon cancer Family history of diabetes mellitus Family history of early CAD Grief reaction Hypertension Hypothyroidism Morbid obesity Plantar fasciitis Surgical History (Updated 10/25/19 @ 12:56 by VELASQUEZ Martins) History of appendectomy (Chronic) History of arthroscopic knee surgery (Chronic) History of hysterectomy (Chronic) History of tonsillectomy (Chronic) S/P colonoscopy (Inactive ~10/31/18) Status post arthroscopy of right knee (Inactive 05/04/19) Partial medial meniscectomy Dr. Esqueda Social History/Home Situation: Pt lives at home with her [place]. She reports having three steps to enter the home. Notes that she has a bed on the first floor while she is recovering and an electric recliner that she is able to use as well. Equipment Owned/DME: none Subjective: NT Objective: General Observation: NT Mental Status: NT Pain: NT ROM: Right Upper Extremity: Shoulder Flexion WFL. Shoulder abduction WFL. Elbow flexion WFL. Wrist flexion WFL. Opening and closing of hand WFL. Left Upper Extremity: Shoulder Flexion WFL. Shoulder abduction WFL. Elbow flexion WFL. Wrist flexion WFL. Opening and closing of hand WFL. Right Lower Extremity: Hip flexion WFL. Hip abduction WFL. Knee flexion 70 degrees (complains of increased pain to 5/10). Knee extension -25 degrees. Ankle dorsiflexion WFL. Ankle plantarflexion WFL. Left Lower Extremity: Hip flexion WFL. Hip abduction WFL. Knee flexion WFL. Ankle dorsiflexion WFL. Ankle plantarflexion WFL. Strength: Right Upper Extremity: Shoulder flexors 5/5. Shoulder abductors 5/5. Elbow flexors 5/5. Elbow extensors 5/5. Automotive Professional strong. Left Upper Extremity: Shoulder flexors 5/5. Shoulder abductors 5/5. Elbow flexors 5/5. Elbow extensors 5/5. Automotive Professional strong. Right Lower Extremity: Hip flexors 3-/5. Hip abductors 5/5. Knee flexors 3-/5. Knee extensors 3-/5. Ankle dorsiflexors 5/5. Ankle plantarflexors 5/5. Left Lower Extremity: Hip flexors 5/5. Hip abductors 5/5. Knee flexors 5/5. Knee extensors 5/5. Ankle dorsiflexors 5/5. Ankle plantarflexors 5/5. Sensation: Intact as to pain and pressure on bilateral lower extremities. Bed Mobility/Transfers: Rolling independent Supine to sit independent Sit to supine independent Sit to stand supervision Stand to sit supervision Bed to chair supervision Chair to bed supervision Gait: She was able to ambulate WBAT on the R 175 feet using a two-wheeled walker with SBA. Step to gait pattern. Asymmetrical step length and height. Balance: Static Sitting: Normal Dynamic Sitting: Normal Static Standing: Fair Dynamic Standing: Fair Assessment: Pt is a 59-year-old with a history of DJD and OA of the R knee presenting with R TKA on post-operative day 2. Patient continues to present with clinical signs and symptoms consistent with current/admitting diagnoses that have resulted to mobility limitations, gait instability, generalized weakness, and impairment of motor control as demonstrated by the following impairment level findings: 1. Decreased strength to R LE hip and knee major muscle groups 2. Impaired standing balance 3. Impaired activity tolerance 4. Limitation of joint range of motion in right knee Impairmentscotninues to contribute to the following functional limitations: 1. Increased dependence with transfers 2. Inability to safely ambulate without assistive device and physical assistance 3. Increase completion time for mobility ADL performance 4. Increased fall risk 5. Inability to negotiate steps alone safely Goals: Goals X1 week 1. Supine-Sit independent MET 2. Sit-Supine independent MET 3. Sit-Stand independent MET 4. Stand-Sit independent NOt MET 5. Bed-Chair independent NOt MET 6. Chair-Bed independent NOt MET 7. Independent gait on level surface with use of least restrictive device for at least 300 feet without report of pain nor dyspnea NOt MET 8. Independent stair negotiation while holding onto bilateral rails for at least 10 steps without report of pain nor dyspnea NOt MET 9. Independent with home exercise program NOt MET 10. Good static and dynamic standing balance/tolerance NOt MET DISCHARGE RECOMMENDATIONS: Discharge to home when medically cleared with four-wheeled walker. TREATMENT CODE/TIME: NT. Meryl Knight PT, DPT, CLT [facility] [place], [place]
== END 2019-11-03 14:16 | disposition home or self-care (01) | DRG 470 ==
LOC: PDS 06:13 → MS 11:06
PROVIDERS: Admitting Provider Student in an Organized Health Care Education/Training Program; PCP Family Medicine; Visit Provider Student in an Organized Health Care Education/Training Program
PROC: 0SRC0J9 Replacement of Right Knee Joint with Synthetic Substitute, Cemented, Open Approach (ICD-10-PCS; CPT 27447; principal; 2019-11-01 07:45)
DX: M17.11 Unilateral primary osteoarthritis, right knee (principal); Z68.41 Body mass index [BMI] 40.0-44.9, adult; M25.561 Pain in right knee; Z96.651 Presence of right artificial knee joint; G89.18 Other acute postprocedural pain; I10 Essential (primary) hypertension; E03.9 Hypothyroidism, unspecified; E66.01 Morbid (severe) obesity due to excess calories
CPT/HCPCS: 27447; 76942; 97110; 97162; 97530; NC; J0690; J1100; J1885; J2001; J2250; J2405; J2704

== ENCOUNTER 2019-11-16 11:20 | Outpatient (CLI) | payer MEDICAID, SELFPAY ==
--- NOTE | 2019-11-16 11:15 | DI.RAD_ITS ---
EXAM: XR KNEE RT 1V CLINICAL HISTORY: 1ST POST OP R TKA TECHNIQUE: COMPARISON: XR knee RT 3V AP,lat,maryann from 03/12/2019 FINDINGS: Single lateral view was obtained. There is a total knee joint replacement position. Components appe ar well seated. IMPRESSION:
--- NOTE | 2019-11-16 11:15 | DI.RAD_ITS ---
EXAM: XR STANDING ALIGNMENT CLINICAL HISTORY: 1ST POST OP TECHNIQUE: COMPARISON: XR STANDING ALIGNMENT from 10/25/2019 FINDINGS: Standing alignment views were obtained there is a total knee joint replacement position on the right. There is degenerative change involving the joints of the left knee with moderate narrowing of media l tibiofemoral cartilaginous joint space on the left. IMPRESSION:
== END 2019-11-16 11:40 ==
PROVIDERS: PCP Family Medicine; Visit Provider Student in an Organized Health Care Education/Training Program
DX: Z96.651 Presence of right artificial knee joint (principal); Z47.1 Aftercare following joint replacement surgery; M17.12 Unilateral primary osteoarthritis, left knee
CPT/HCPCS: 73560; 77073

== ENCOUNTER 2019-12-11 01:00 | Outpatient (CLI) | payer MEDICAID, SELFPAY ==
--- NOTE | 2019-12-11 | DI.MAMMO_ITS ---
EXAM: MAMMO SCREENING CLINICAL HISTORY: SCREENING, Z12.39 TECHNIQUE: Mammograms were interpreted according to the usual protocol including computer analysis w [facility] CAD system, tomosynthesis and C-view imaging. COMPARISON: February 2017 FINDINGS: The breasts are of moderate density with fairly symmetrical distribution of fibroglandular tissue. N o dominant mass or clumped microcalcification is identified in either breast. Current examination is compared with previous examination of February 2017 and there has been no gross interval change in appear ance in comparison with the previous study. IMPRESSION: No specific evidence of malignancy at this time. Routine screening examinations are suggested at year ly intervals in this age group according to the ACS/ACR guidelines. Category 1, breast density catego ry B. BI-RADS Cat 1 - Negative Breast Density - Category B - Scattered areas of fibroglandular density
--- NOTE | 2020-02-22 12:18 | TELEFU_ITS ---
Meron followed up via email by sending a 3 day food record. Diet record indicates reliance on convenience foods, high amounts of simple sugars (soda, fries, cookies, cakes, chips, potatoes) and inadequate intake of lean protein and vegetables. Provided Meron with copy of 1500 calories meal plan that high moderate in carbohydrates protein and fats (40%CARBS, 30% PROTEIN, 30% FAT), encouraged her to track her intake on [employer]. Goal is for a 10% weight loss in next 90 days. Meron to make in person appt when she is comfortable to come to hospital. Please do not bill for this service.
== END 2019-12-11 01:20 ==
PROVIDERS: PCP Family Medicine; Visit Provider Family Medicine
DX: Z12.31 Encounter for screening mammogram for malignant neoplasm of breast (principal)
CPT/HCPCS: 77063; 77067

== ENCOUNTER 2020-04-08 11:07 | Outpatient (CLI) | payer MEDICAID, SELFPAY ==
[2020-04-09 02:51] LABS: COVID-19 RT-PCR UVMMC Result Negative (Negative)
== END 2020-04-08 11:27 ==
PROVIDERS: PCP Family Medicine; Visit Provider Family Medicine
DX: R05 Cough (principal)
CPT/HCPCS: U0003

== ENCOUNTER 2020-07-05 09:14 | Emergency (ER) | payer MEDICAID, SELFPAY ==
[2020-07-05] VITALS (44 sets, daily range): BP systolic 105–168; BP diastolic 44–85; PULSE 57–92; RESP 8–34; TEMP 37; O2SAT 93–100
--- NOTE | 2020-07-05 09:15 | RT.EKG_ITS ---
APPROVED REPORT Exam: Resting ECG Patient Location: E HR:72 bpm ECG Measurements Heart Rate 72 AXIS MA 142 P 6 QRSd 94 QRS -18 QT 413 T 22 QTc 453 Conclusion Sinus rhythm...normal P axis, V-rate 60- 99
--- NOTE | 2020-07-05 09:19 | W.ED.GENAD ---
Discharge Plan Disposition Patient Disposition: HOME Condition: Improving Discharge Details Clinical Impression: Biliary colic, Vomiting, Chest wall pain Primary Care Provider: Caron Triplett ED Provider: Destiny Gilmore Home Meds and New Rx's Prescriptions: New ondansetron 4 mg tablet,disintegrating 4 mg PO TID PRN (Reason: nausea and vomiting) Qty: 6 RF: 0 Continued lisinopril 10 mg tablet 10 mg PO DAILY RF: 0 (DME) Custom Hinged Knee Brace Qty: 1 RF: 0 albuterol sulfate [ProAir HFA] 8.5 GM HFA aerosol inhaler 2 puff Inhalation Q4H PRN RF: 0 levothyroxine 112 MCG tablet 112 mcg PO DAILY RF: 0 bupropion HCl [Wellbutrin XL] 150 MG tablet extended release 24 hr 150 mg PO DAILY RF: 0 acetaminophen 500 mg tablet 1,000 mg PO Q8H PRN (Reason: pain) Qty: 90 RF: 3 ibuprofen 600 mg tablet 600 mg PO TID PRNQty: 90 RF: 3 multivitamin Tablet 1 tab PO DAILY RF: 0 Discharge Instructions Instructions: Biliary Colic (ED), Acute Nausea and Vomiting (ED), Chest Wall Pain (ED) Additional Instructions: Drink plenty of fluids and get plenty of rest. Alternate tylenol and motrin as needed and directed for pain. Take Zofran as needed and directed for nausea and vomiting. Follow-up with your scheduled appointment with general surgeon Dr. Vazquez at [facility] on 07/08/2020 at 8:30 AM. Return immediately to the emergency department if you develop any worsening or new concerning symptoms. Referrals: Galina Vazquez DO [OSTEOPATHIC DOCTOR] - Discharge Data Discharge Physician: Destiny Gilmore Medical Decision Making 2609 -- 59-year-old female with a history of morbid obesity, hypertension, hypothyroidism, depression presents with vomiting, right-sided chest pain and right upper quadrant abdominal pain since yesterday. EKG notes a rate of 72, sinus with no acute ST-T wave ischemic changes. Her right chest is tender to palpation. She has right upper quadrant and epigastric tenderness. She is actively vomiting bile in room. Differential diagnosis includes cholelithiasis, cholecystitis, bowel obstruction, dissection, gastroenteritis. Will check screening labs, CT chest abdomen and pelvis and give a dose of Zofran, fluids and morphine and reassess. Doubt ACS as her chest is tender to palpation and started after vomiting. History and presentation not consistent with dissection as she denies any tearing or ripping sensation. 1115 --labs reviewed and unremarkable. Normal white blood cell count. Troponin negative. Patient reassessed --she is complaining of continued chest pain and nausea. Will give a dose of morphine and Compazine. 1220 --imaging reviewed. CT scan negative. Ultrasound notes large gallbladder neck stone. Patient reassessed and she feels much better. Will review case and imaging with Dr. Vazquez. 1300 --Case discussed with Dr. Vazquez. Recommends patient have close follow-up with them for reevaluation. Appointment [facility] with [facility] for 07/08/2020 at 8:[address] Vazquez. Patient feels much better and feels good to go home. Usual and customary return precautions given prior to discharge. Medical Records Medical records reviewed: Yes I reviewed the patient's medical records. Imaging Data Radiologic Study: Radiologist's impression: CT THORAX ABD/PEL CTA TECHNIQUE: CT angiography of the chest, abdomen and pelvis was performed with bolus infusion of 125 cc of Omnipaque 350. Arterial phase images of the chest venous phase images of the abdomen and pelvis were obtained. Axial CT angiography was performed with multi-slice acquisition and multi-planar and/or 3D reconstructions. FINDINGS: The lungs are clear. No pleural effusion. No evidence of pulmonary embolic disease. No thoracic aortic dissection or aneurysm. Major branches of the thoracic aorta appear normal. No pleural effusion. No mediastinal or hilar adenopathy. Tracheobronchial tree appears intact. There is a small hiatal hernia. No focal hepatic or renal abnormality seen. Gallbladder and bile ducts are CT normal. Pancreas is unremarkable. Spleen shows unremarkable early arterial phase pattern of enhancement. No abdominal aortic aneurysm or dissection. Major branches of the abdominal aorta appear normal. No abdominal or pelvic adenopathy. Appendix not specifically visualized but no evidence of appendicitis.. No significant abdominal wall hernia. No focal bowel pathology. No significant abdominal wall hernia. No abdominal or pelvic adenopathy. IMPRESSION: No evidence of acute vascular abnormality of the chest, abdomen or pelvis. No other abnormalities are seen. US ABDOMEN LIMITED CLINICAL HISTORY: RUQ/chest pain pain, r/o cholecystitis TECHNIQUE: Ultrasound performed using standard protocol. COMPARISON: US US OR ANESTHESIA from 11/01/2019 FINDINGS: Right upper quadrant ultrasound was performed. Visualized liver parenchyma is normal in appearance. There is cholelithiasis without gallbladder wall thickening or pericholecystic fluid collection. There is a 2.6 cm stone in the gallbladder neck. No biliary dilatation. Negative sonographic Garcia sign. Abdominal aorta and IVC are of normal diameter. Right kidney appears normal with no evidence of hydronephrosis or nephrolithiasis. IMPRESSION: 2.6 cm in diameter gallbladder neck stone. No other significant findings. Lab Data Lab results reviewed: Yes I reviewed the patient's lab results. Labs: Laboratory Tests Range/Units 07/05/20 07/05/20 07/05/20 09:30 09:30 09:30 WBC (4.4-10.8) 10^3/uL 8.59 RBC (3.93-5.22) 10^6/uL 4.71 Hgb (11.2-15.7) g/dL 14.3 Hct (36.0-46.0) % 42.8 MCV (80-95) fL 90.9 MCH (27.0-33.0) pg 30.4 MCHC (32.0-36.0) % 33.4 RDW (11.7-14.6) % 12.5 Plt Count (130-400) 10^3/uL 304 MPV (8.0-11.0) fL 9.5 Immature Gran % 0.5 Neutrophils % 88.1 Lymphocytes % 9.1 Monocytes % 2.3 Eosinophils % 0.0 Basophils % 0.0 Nucleated RBC % % 0 Absolute Neutrophils (1.2-6.7) 10^3/uL 7.57 H Absolute Lymphocytes (1.2-3.4) 10^3/uL 0.78 L Absolute Monocytes (0.1-0.8) 10^3/uL 0.20 Absolute Eosinophils (0.0-0.7) 10^3/uL 0.00 Absolute Basophils (0.0-0.2) 10^3/uL 0.00 PT (9.3-11.0) sec 10.8 INR (0.9-1.1) 1.1 APTT (21.0-31.4) sec 26.0 Sodium (136-145) mmol/L 138 Potassium (3.5-5.1) mmol/L 3.5 Chloride (98-107) mmol/L 102 Carbon Dioxide (21.0-32.0) mmol/L 22.7 Anion Gap (3-11) mmol/L 13.3 H BUN (7-18) mg/dL 16 Creatinine (0.55-1.02) mg/dL 0.60 Estimated GFR/1.73 m2 (mL/min/1.73m2) >= 60.00 Glucose (74-106) mg/dL 132 H Calcium (8.5-10.1) mg/dL 9.0 Magnesium (1.8-2.4) mg/dL 2.1 Total Bilirubin (0.2-1.0) mg/dL 0.6 AST (15-37) U/L 24 ALT (14-59) U/L 25 Alkaline Phosphatase (46-116) U/L 83 Troponin I (<0.06) ng/mL < 0.05 Total Protein (6.4-8.2) g/dL 7.6 Albumin (3.4-5.0) g/dL 3.7 Lipase (73-393) U/L 70 ECG Data Attestation: I personally reviewed and interpreted this ECG (s) as follows: Interpretation: rate of 72, sinus, no acute ST elevation or depression. GA 142. QRS 94. QTc 453. HPI General Mode of arrival: ambulatory. Date/Time Provider Initiated Documentation: 07/05/20 09:14. Limitations to Documentation: no limitations. Information obtained by: patient. HPI Narrative: Patient is a 59-year-old female with a history of morbid obesity, hypertension, hypothyroidism, depression, hysterectomy presents for vomiting and chest pain since last night. Patient states she ate a cheeseburger at 1 PM yesterday and then around 6:00 began vomiting. She states she initially vomited food but now is clear and bile. She states she last vomited at 8 AM this morning. She states she has had multiple bowel movements overnight which have been within normal limits without bleeding. She states her chest pain started sometime last night but she is unsure of when. She states it occasionally radiates to her back but mainly she notes it to be midsternal and right-sided. She does also admit to upper abdominal pain. She denies any known fever, shortness of breath, diarrhea, urinary symptoms, recent travel, recent known sick contacts. She states her ate the same thing yesterday and denies any symptoms. Related Data Home Medications Medication Instructions Recorded Confirmed albuterol sulfate [ProAir HFA] 2 puff INHALATION Q4H PRN inhaler 05/20/18 07/05/20 NS bupropion HCl [Wellbutrin XL] 150 mg PO DAILY tab-cap NS 05/20/18 07/05/20 levothyroxine 112 mcg PO DAILY tab-cap NS 05/20/18 07/05/20 multivitamin 1 tab PO DAILY 09/04/18 07/05/20 lisinopril 10 mg tablet 10 mg PO DAILY 10/21/18 07/05/20 acetaminophen 1,000 mg PO Q8H PRN #90 tab 11/03/19 07/05/20 ibuprofen 600 mg PO TID PRN #90 tab 11/03/19 07/05/20 Custom Hinged Knee Brace #1 ea 02/05/20 02/05/20 ondansetron 4 mg PO TID PRN #6 tab 07/05/20 Previous Rx's Medication Instructions Recorded acetaminophen 1,000 mg PO Q8H PRN #90 tab 11/03/19 ibuprofen 600 mg PO TID PRN #90 tab 11/03/19 Custom Hinged Knee Brace #1 ea 02/05/20 ondansetron 4 mg PO TID PRN #6 tab 07/05/20 Allergies Allergy/AdvReac Type Severity Reaction Status Date / Time Sulfa (Sulfonamide Allergy Mild Skin Rash Unverified 07/05/20 09:28 Antibiotics) General FELICITY: 4 Review of Systems All systems reviewed & are unremarkable except as noted in HPI and below Constitutional Constitutional: Reports as per HPI, Denies chills and Denies fever(s) Eyes Eyes: Denies blurry vision ENT Ears, Nose, Mouth, and Throat: Denies dizziness, Denies sore throat and Denies throat swelling Cardiovascular Cardiovascular: Reports chest pain and Denies dyspnea Respiratory Respiratory: Denies cough and Denies dyspnea Gastrointestinal Gastrointestinal: Denies abdominal pain, Denies diarrhea and Reports vomiting Genitourinary Genitourinary: Denies hematuria and Denies dysuria Musculoskeletal Musculoskeletal: Denies back pain and Denies numbness Integumentary/Breasts Skin/Breast: Denies lesions and Denies rash Neurologic Neurologic: Denies dizziness, Denies localized weakness and Denies numbness Allergic/Immunologic Allergic/Immunologic: Denies throat swelling [facility] Medical History (Updated 07/05/20 @ 13:29 by Destiny Gilmore DO) Asthma Rarely uses her inhaler Atypical chest pain R/T TO RIB DISPLACEMENT PER PT. HAD CARDIAC WORK-UP EVERY THING CAME BACK NORMAL PER PT. 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 Esqueda Status post right knee replacement (11/01/19) Family History Other Diabetes Heart disease Social History Smoking/Tobacco Use Status: Never Alcohol Intake: current Alcohol Intake frequency: holidays/special occasions only Alcohol type: wine Drug use: Never Substance use type: does not use Current gender identity: female Do you feel safe at home: Yes Do you feel safe in your relationship?: Yes Exam Const General: cooperative, healthy appearing and no acute distress [facility] Head: normal to inspection Face and sinus: normal facial exam Eyes General: appearance normal, both eyes and all related structures EOM: EOM intact bilaterally Neck Neck: normal visual inspection and No submandibular swelling Lymphatic: no lymphadenopathy noted Chest Chest: normal inspection of the chest Chest/axillae images: 1. Tenderness to palpation. No rash, cellulitis, step-off or crepitus. Resp Effort & Inspection: normal respiratory effort and able to speak in complete sentences Auscultation: clear to auscultation bilaterally Cardio Rate: regular rate Rhythm: regular rhythm GI Inspection: normal to inspection and obesity Palpation: soft, not firm, not rigid and tender in the epigastrum and in the RUQ Auscultation: normal bowel sounds Back/Spine/Pelvis Thoracic/Lumbar Spine: thoracic and lumbar spine normal to inspection Skin General skin exam: no rashes or lesions noted Neuro General: patient alert, patient awake and patient oriented x3 Cognition: normal cognition Speech: speech normal Motor: muscle tone normal throughout Sensory Exam: no sensory deficits noted Extrem General: normal to inspection, full ROM, capillary refill normal, no calf tenderness bilaterally and no edema Psych Appearance: grossly normal Mental Status: mental status grossly normal Speech and Movement: speech and movement normal Affect: normal affect
--- NOTE | 2020-07-05 09:30 | DI.CT_ITS ---
EXAM: CT THORAX ABD/PEL CTA TECHNIQUE: CT angiography of the chest, abdomen and pelvis was performed with bolus infusion of 125 cc of Omnipaque 350. Arterial phase images of the chest venous phase images of the abdomen and pelvi s were obtained. Axial CT angiography was performed with multi-slice acquisition and multi-planar and/or 3D reconstruc tions. FINDINGS: The lungs are clear. No pleural effusion. No evidence of pulmonary embolic disease. No thoracic aort ic dissection or aneurysm. Major branches of the thoracic aorta appear normal. No pleural effusion. No mediastinal or hilar adenopathy. Tracheobronchial tree appears intact. There is a small hiatal hernia. No focal hepatic or renal abnormality seen. Gallbladder and bile ducts are CT normal. Pancreas is unr emarkable. Spleen shows unremarkable early arterial phase pattern of enhancement. No abdominal aortic aneurysm or dissection. Major branches of the abdominal aorta appear normal. No a bdominal or pelvic adenopathy. Appendix not specifically visualized but no evidence of appendicitis. . No significant abdominal wall hernia. No focal bowel pathology. No significant abdominal wall hernia. No abdominal or pelvic adenopathy. IMPRESSION: No evidence of acute vascular abnormality of the chest, abdomen or pelvis. No other abnormalities are seen. RADIATION DOSE DELIVERED: 1,551.24mGy.cm Total DLP 1,551.24mGy.cm Total DLP DATA REPOSITORY: All CT scans at this facility are submitted to the National Radiology Data Registry (NRDR) Dose Index Registry (DIR) with the [employer] ([employer]). RADIATION OPTIMIZATION: All CT scans at this facility use at least one of these dose optimization te chniques: automated exposure control; mA and/or kV adjustment per patient size (includes targeted exa ms where dose is matched to clinical indication); or iterative reconstruction.
--- NOTE | 2020-07-05 09:30 | DI.US_ITS ---
EXAM: US ABDOMEN LIMITED CLINICAL HISTORY: RUQ/chest pain pain, r/o cholecystitis TECHNIQUE: Ultrasound performed using standard protocol. COMPARISON: US US OR ANESTHESIA from 11/01/2019 FINDINGS: Right upper quadrant ultrasound was performed. Visualized liver parenchyma is normal in appearance. There is cholelithiasis without gallbladder wal l thickening or pericholecystic fluid collection. There is a 2.6 cm stone in the gallbladder neck. No biliary dilatation. Negative sonographic Garcia sign. Abdominal aorta and IVC are of normal diameter. Right kidney appears normal with no evidence of hydronephrosis or nephrolithiasis. IMPRESSION: 2.6 cm in diameter gallbladder neck stone. No other significant findings. DATA REPOSITORY:
[2020-07-05] MEDS: Ondansetron 4 MG/2 ML VIAL (09:33)
[2020-07-05] MEDS: Normal Saline 1,000 ML 1000 ML IV (09:45)
[2020-07-05 09:50] LABS: Abs Immature Grans 0.04 10^3/uL (0.0-0.06); Absolute Lymphocyte Count 0.78 10^3/uL (1.2-3.4); Absolute Neutrophil Count 7.57 10^3/uL (1.2-6.7); HCT 42.8 % (36.0-46.0); HGB 14.3 g/dL (11.2-15.7); Immature Grans % 0.5; Lymphocytes % 9.1; MCH 30.4 pg (27.0-33.0); MCHC 33.4 % (32.0-36.0); MCV 90.9 fL (80-95); MPV 9.5 fL (8.0-11.0); Monocytes % 2.3; Neutrophils % 88.1; Nucleated RBC 0 %; Platelet Count 304 10^3/uL (130-400); RBC 4.71 10^6/uL (3.93-5.22); RDW 12.5 % (11.7-14.6); RDW-SD 41.9 fL; WBC 8.59 10^3/uL (4.4-10.8)
[2020-07-05 10:04] LABS: INR 1.1 (0.9-1.1); Prothrombin Time 10.8 sec (9.3-11.0)
[2020-07-05 10:06] LABS: ALT 25 U/L (14-59); AST 24 U/L (15-37); Albumin 3.7 g/dL (3.4-5.0); Alkaline Phosphatase 83 U/L (46-116); Anion Gap 13.3 mmol/L (3-11); BUN 16 mg/dL (7-18); Bilirubin, Total 0.6 mg/dL (0.2-1.0); CO2 22.7 mmol/L (21.0-32.0); Chloride 102 mmol/L (98-107); Glucose 132 mg/dL (74-106); Lipase 70 U/L (73-393); Magnesium 2.1 mg/dL (1.8-2.4); Potassium 3.5 mmol/L (3.5-5.1); Sodium 138 mmol/L (136-145); Total Protein 7.6 g/dL (6.4-8.2); Troponin I < 0.05 ng/mL (<0.06)
[2020-07-05] MEDS: Prochlorperazine 10 MG/2 ML VIAL IVP (11:20)
[2020-07-05] MEDS: Omnipaque 350 MG/ML 100 ML BTL IJ (11:46)
== END 2020-07-05 13:55 | disposition home or self-care (01) ==
PROVIDERS: Emergency Provider Physician Assistant; PCP Family Medicine
DX: K80.70 Calculus of gallbladder and bile duct without cholecystitis without obstruction (principal); R07.81 Pleurodynia; R11.2 Nausea with vomiting, unspecified; R10.13 Epigastric pain; I10 Essential (primary) hypertension; E66.01 Morbid (severe) obesity due to excess calories; Z68.36 Body mass index [BMI] 36.0-36.9, adult
CPT/HCPCS: 36415; 71275; 74177; 80053; 83690; 93005; 96361; 96374; 96375; 99285; 76705; 83735; 84484; 85025; 85610; 85730; 93010; J0780; J2405; J3490

== ENCOUNTER 2020-08-20 16:23 | Outpatient (REF) | payer MEDICAID, SELFPAY ==
[2020-08-20 21:03] LABS: Hemoglobin A1C 5.4 % (<5.7)
[2020-08-20 21:06] LABS: Calculated LDL 113 mg/dL (<100); Cholesterol 187 mg/dL (<200); HDL Cholesterol 60 mg/dL (40-60); TSH 1.41 uIU/mL (0.36-3.74); Triglyceride 70 mg/dL (<150)
== END 2020-08-20 16:43 ==
LOC: NCHCN 16:23
PROVIDERS: PCP Family Medicine; Visit Provider Family Medicine
DX: E03.9 Hypothyroidism, unspecified (principal); R73.9 Hyperglycemia, unspecified; I10 Essential (primary) hypertension; E78.5 Hyperlipidemia, unspecified
CPT/HCPCS: 80061; 83036; 84443

== ENCOUNTER 2020-12-02 10:56 | Outpatient (CLI) | payer MEDICAID, SELFPAY ==
--- NOTE | 2020-12-02 10:00 | DI.RAD_ITS ---
EXAM: XR KNEE RT 2V AP,LAT CLINICAL HISTORY: ANNUAL F/U R TKA. TECHNIQUE: 2D digital imaging was performed. COMPARISON: CR XR KNEE RT 1V from 11/16/2019 FINDINGS: Two view study reveal satisfactory position alignment of the components of the prosthesis. No fractu re or loosening. No radiographic evidence of osteomyelitis. IMPRESSION: Satisfactory appearance. Sign rib DATA REPOSITORY: RADIATION DOSE DELIVERED:
== END 2020-12-02 10:57 | disposition home or self-care (01) ==
LOC: DIORS 10:57
PROVIDERS: PCP Family Medicine; Referring Provider Family Medicine; Visit Provider Student in an Organized Health Care Education/Training Program
DX: Z96.651 Presence of right artificial knee joint (principal)
CPT/HCPCS: 73560

== ENCOUNTER 2021-09-17 14:48 | Outpatient (REF) | payer MEDICAID, SELFPAY ==
[2021-09-17 22:22] LABS: Hemoglobin A1C 5.4 % (<5.7)
[2021-09-17 22:26] LABS: Anion Gap 10.2 mmol/L (3-11); BUN 15 mg/dL (7-18); CO2 25.8 mmol/L (21.0-32.0); CREATININE 0.7 mg/dL (0.55-1.02); Calcium 8.8 mg/dL (8.5-10.1); Chloride 105 mmol/L (98-107); Glucose 76 mg/dL (74-106); Potassium 4.1 mmol/L (3.5-5.1); Sodium 141 mmol/L (136-145); TSH 0.46 uIU/mL (0.36-3.74)
== END 2021-09-17 14:49 | disposition home or self-care (01) ==
LOC: NCHCN 14:48
PROVIDERS: PCP Family Medicine; Visit Provider Family Medicine
DX: E03.9 Hypothyroidism, unspecified (principal); I10 Essential (primary) hypertension; E66.01 Morbid (severe) obesity due to excess calories
CPT/HCPCS: 80048; 83036; 84443

== ENCOUNTER 2022-03-18 18:31 | Outpatient (REF) | payer MEDICAID, SELFPAY ==
[2022-03-18 16:23] LABS: Anion Gap 9.4 mmol/L (3-11); BUN 13 mg/dL (7-18); CO2 25.6 mmol/L (21.0-32.0); CREATININE 0.8 mg/dL (0.55-1.02); Calcium 8.8 mg/dL (8.5-10.1); Calculated LDL 121 mg/dL (<100); Chloride 106 mmol/L (98-107); Cholesterol 196 mg/dL (<200); Glucose 82 mg/dL (74-106); HDL Cholesterol 67 mg/dL (40-60); Potassium 4.1 mmol/L (3.5-5.1); Sodium 141 mmol/L (136-145); Triglyceride 40 mg/dL (<150)
== END 2022-03-18 18:32 | disposition home or self-care (01) ==
LOC: NCHCN 18:31
PROVIDERS: PCP Family Medicine; Visit Provider Family Medicine
DX: E78.5 Hyperlipidemia, unspecified (principal); R73.9 Hyperglycemia, unspecified
CPT/HCPCS: 80048; 80061

== ENCOUNTER 2022-11-25 02:51 | Outpatient (CLI) | payer MEDICAID, SELFPAY ==
--- NOTE | 2022-11-25 12:08 | DI.MAMMO_ITS ---
Exam(s) MAMMO SCREENING EXAM: MAMMO SCREENING CLINICAL HISTORY: SCREENING FOR BREAST CANCER Z12.39 TECHNIQUE: Bilateral full field digital CC and MLO mammographic images were obtained with 3D tomosyn thesis and utilizing computer aided detection (CAD). COMPARISON: Available for comparison. FINDINGS: Masses/Architectural Distortion: The nodule in the central right breast appears stable. No suspiciou s nodules or areas of architectural distortion are present. Microcalcifications: No suspicious pleomorphic-type are seen. Skin Thickening/Nipple Retraction: None. IMPRESSION: 1. No significant interval change with no specific features of malignancy noted. 2. Unless there is more urgent need, screening mammography is recommended, as per [employer] guidelines. BI-RADS Category 1 - Negative Breast Density - Category B - Scattered areas of fibroglandular density Breast density category C or D implies that the patient has dense breast tissue. Dense breast tissue is very common and is not abnormal but dense breast tissue can make it harder to find cancer on a ma mmogram. Also, dense breast tissue may increase their breast cancer risk. This information about the result of the mammogram report was provided to the patient to raise their awareness. Use this report when you speak with the patient about their risks for breast cancer, which includes their family hist ory. At that time, you may recommend for more screening tests (Ultrasound or MRI) as they might be us eful based on their risk. A negative radiographic report should not delay biopsy if a dominant or clinically suspicious mass is present. Up to ten percent of cancers are not identified on mammography. A negative report may reinforce clinical impression. Adenosis and dense breasts may obscure an underlying neoplasm. False positive reports average 6 to 10%. Patient will receive a letter notifying them of these results.
== END 2022-11-25 03:11 ==
LOC: DI 02:51
PROVIDERS: PCP Family Medicine; Visit Provider Family Medicine
DX: Z12.31 Encounter for screening mammogram for malignant neoplasm of breast (principal)
CPT/HCPCS: 77063; 77067

== ENCOUNTER 2023-05-14 19:58 | Outpatient (REF) | payer MEDICAID, SELFPAY ==
[2023-05-14 15:55] LABS: Hemoglobin A1C 5.5 % (<5.7)
[2023-05-14 16:11] LABS: Anion Gap 8.7 mmol/L (3-11); BUN 18 mg/dL (7-18); CO2 23.3 mmol/L (21.0-32.0); CREATININE 0.6 mg/dL (0.55-1.02); Calcium 8.6 mg/dL (8.5-10.1); Chloride 107 mmol/L (98-107); Estimated GFR 102.06 (mL/min/1.73m2); Glucose 95 mg/dL (74-106); Potassium 4.1 mmol/L (3.5-5.1); Sodium 139 mmol/L (136-145); TSH 0.67 uIU/mL (0.36-3.74)
== END 2023-05-14 19:59 | disposition home or self-care (01) ==
LOC: NCHCN 19:58
PROVIDERS: PCP Family Medicine; Visit Provider Family Medicine
DX: E03.9 Hypothyroidism, unspecified (principal); R73.09 Other abnormal glucose; Z00.00 Encounter for general adult medical examination without abnormal findings
CPT/HCPCS: 80048; 83036; 84443

== ENCOUNTER 2023-12-21 07:44 | Day surgery (SDC) | payer MEDICAID, SELFPAY ==
[2023-12-21 08:05] VITALS: BP 139/69; PULSE 55; RESP 16; TEMP 36.4; O2SAT 97
[2023-12-21] MEDS: Lactated Ringers 1,000 ML 80 ML IV (08:31)
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
[2023-12-21 08:39] VITALS: BMI 46.7
--- NOTE | 2023-12-21 09:12 | BOWEL_PTH ---
PATIENT: Meron Carlton LOC: [facility] U#:[id number] AGE/SX: 63/F ROOM: RE12/21/[address]: Frank Cintron : 1960 BED: DIS: 12/21/2023 SPEC #: [id number] RECD: 12/21/23 12:44 STATUS: TOMASZ REQ #: [id number] MAIKEL: 12/21/23 09:[address]: Frank Cintron DEPT: Surgical Specimen RECD BY: Lorrie Crandall ENTERED: 12/21/23 12:44 SP TYPE: Bowel OTHR DR: Caron Triplett Tissues: 1 - BIOPSY BOWEL Procedures: GROSS AND MICRO LEVEL 4 Comments: [id number]
[2023-12-21 09:20] VITALS: BP 120/66; PULSE 60; RESP 16; TEMP 36.5; O2SAT 99
--- NOTE | 2023-12-21 09:23 | COLE_ITS ---
Date of service: 12/21/23 Time of Service: 09:23 Colonoscopy Report Procedure Description: PROCEDURES PERFORMED: 1. Colonoscopy with cold forceps polypectomy PREOPERATIVE DIAGNOSIS: Surveillance colonoscopy POSTOPERATIVE DIAGNOSIS: Hyperplastic rectal polyps, pandiverticulosis, luke cending colon fibrosis SURGEON: Roseline Cintron MD INDICATION for procedure: The patient is a 63-year-old woman without any symptoms. She has had prior colonoscopies. Her mother had colon cancer in her 60s. The patient herself has had adenomatous polyps removed in the past per report. FINDINGS: Normal terminal ileum. Pandiverticulosis. The descending and sigmoid colon's seem to have some amount of fibrosis related to chronic diverticular disease but no active diverticulitis or stricture. A small flat hyperplastic?appearing 2-3 mm polyp was removed with cold forceps technique in the rectum to confirm hyperplastic histology. SURVEILLANCE interval/FOLLOW-UP: 5 years considering the family history. SPECIMENS: yes EBL: Minimal COMPLICATIONS: None QUALITY of prep: Excellent Procedure in detail: The patient gave written consent and was in agreement with the indications, the potential risks as well as the benefits of the procedure. They were taken to the endoscopy suite and laid in the left lateral decubitus position. A timeout was performed and anesthesia was administered which was tolerated well. I started the procedure. Digital rectal and visual examination was performed and grossly within normal limits. A well-lubricated flexible colonoscope was then introduced and passed without any notable difficulty all the way to the cecum identified by the ileoc ecal valve and the appendiceal orifice. The terminal ileum was briefly intubated and looked normal. The scope was then slowly withdrawn with the above-noted findings. The patient tolerated the procedure well and was taken to the PACU in hemodynamically stable condition.
--- NOTE | 2023-12-21 09:26 | W.PM.DSUDISC ---
Date of service: 12/21/23 Time of Service: 09:26 Discharge Plan Disposition Patient Disposition: Home Condition: Good Discharge Details Attending Provider: Frank Cintron Primary Care Provider: Caron Triplett Home Meds and New Rx's Prescriptions: No Action lisinopril 10 mg tablet 10 mg PO DAILY (DME) Custom Hinged Knee Brace Qty: 1 0RF Rx Instructions: Please provide a custom or custom-fitted lower profile hinged knee brace to the left knee for valgus instability and chronic MCL deficiency. ibuprofen [Advil] 200 mg tablet 600 mg PO Q6H PRN bisacodyl [Dulcolax (bisacodyl)] 5 mg tablet,delayed release (DR/EC) 5 mg PO ONCE Qty: 4 0RF Rx Instructions: take per colonoscopy instructions polyethylene glycol 3350 17 gram/dose powder 238 g PO ONCE Qty: 238 0RF Rx Instructions: take per colonoscopy instructions albuterol sulfate [ProAir HFA] 8.5 GM HFA aerosol inhaler 2 puff Inhalation Q4H PRN levothyroxine 112 MCG tablet 112 mcg PO DAILY sertraline 100 mg tablet 100 mg PO DAILY fexofenadine [Graciela Allergy] 180 mg tablet 180 mg PO DAILY PRN fluticasone propionate [Flovent Diskus] 100 mcg/actuation blister with device 1 inh inhalation BID PRN ondansetron 4 mg tablet,disintegrating 4 mg PO TID PRN (Reason: nausea and vomiting) Qty: 6 0RF Discharge Instructions Additional Instructions: FINDINGS: Your colon appears healthy. There is chronic diverticular disease present which is known and not a new finding. There is nothing you can do(or need to do) about this otherwise extremely common and benign condition. A small polyp was removed today. It is nothing to worry about. You should repeat another colonoscopy in 5 years because your family history. Activity:: Activity as Tolerated Diet:: As Tolerated
[2023-12-21 09:51] VITALS: BP 129/73; PULSE 57; RESP 16; TEMP 36.4; O2SAT 98
--- NOTE | 2023-12-21 13:01 | W.ANESPOSTOP ---
Postoperative Evaluation Date, Time and Location Date Performed: 12/21/23 Time Performed: 09:30 Patient Location: Day Surgery Unit Vital Signs Most Recent Imported Vital Signs: Most Recent Vital Signs Temp Pulse Resp BP Pulse Ox 36.4 C L 57 L 16 129/73 98 12/21/23 09:51 12/21/23 09:51 12/21/23 09:51 12/21/23 09:51 12/21/23 09:51 Pain Score Most Recent Pain Score: Most Recent Pain Score Pain Level 0 12/21/23 09:51 Assessment Mental Status: Awake (Alert & Oriented to Patient Baseline) Airway and Respiratory Function: Patent airway with normal (patient baseline) respiratory exam Cardiovascular Function: Hemodynamically Stable Hydration Status: Adequately Hydrated Nausea & Vomiting: No Nausea or Vomiting Pain: Pt. Denies Any Pain Peripheral Nerve Block: Patient did not receive a nerve block
== END 2023-12-21 10:03 | disposition home or self-care (01) ==
PROVIDERS: PCP Family Medicine; Visit Provider Student in an Organized Health Care Education/Training Program
PROC: 0DJD8ZZ Inspection of Lower Intestinal Tract, Via Natural or Artificial Opening Endoscopic (ICD-10-PCS; CPT 45378; principal; 2023-12-21 09:00)
DX: Z12.11 Encounter for screening for malignant neoplasm of colon (principal); K62.1 Rectal polyp; Z86.010 Personal history of colon polyps; Z80.0 Family history of malignant neoplasm of digestive organs; K57.30 Diverticulosis of large intestine without perforation or abscess without bleeding; K63.89 Other specified diseases of intestine
CPT/HCPCS: 45380; 00123; 88305; J2001; J2704

== ENCOUNTER → 2024-01-28 20:20 | Outpatient (CLI) | payer MEDICAID, SELFPAY ==
--- NOTE | 2024-01-28 | DI.CT_ITS ---
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 TECHNIQUE: Imaging Protocol: Axial computed tomography images with coronal and sagittal reformatted images were created and reviewed COMPARISON: No exams were available for comparison FINDINGS: There are no skull fractures. There is opacification of the partially included right ovary sinus. Pa rtially included left maxillary sinus is clear as are the ethmoidal air cells bilaterally, sphenoid s inuses and frontal sinuses. Mastoid air cells are also clear bilaterally. There is no evidence of intracranial hemorrhage, mass effect, or shift of midline structures. There are no extra-axial fluid collections. The ventricles are not enlarged or shifted and there is no blo od within the ventricular system nor within the basal cisterns. IMPRESSION: No acute intracranial findings on this noninfused CT scan of the brain. Opacification of the right maxillary sinus noted. RADIATION DOSE DELIVERED: Total DLP DATA REPOSITORY: All CT scans at this facility are submitted to the National Radiology Data Registry (NRDR) Dose Index Registry (DIR) with the [employer] (ACR). RADIATION OPTIMIZATION: All CT scans at this facility use at least one of these dose optimization te chniques: automated exposure control; mA and/or kV adjustment per patient size (includes targeted exa ms where dose is matched to clinical indication); or iterative reconstruction.
== END ==
PROVIDERS: PCP Family Medicine; Visit Provider Family Medicine
DX: F07.81 Postconcussional syndrome (principal); J32.0 Chronic maxillary sinusitis; R51.9 Headache, unspecified
CPT/HCPCS: 70450

== ENCOUNTER 2024-05-19 15:02 | Outpatient (REF) | payer MEDICAID, SELFPAY ==
[2024-05-19 19:26] LABS: Calculated LDL 134 mg/dL (<100); Cholesterol 209 mg/dL (<200); HDL Cholesterol 67 mg/dL (40-60); TSH 0.77 uIU/Ml (0.36-3.74); Triglyceride 42 mg/dL (<150)
== END 2024-05-19 15:03 | disposition home or self-care (01) ==
LOC: NCHCN 15:02
PROVIDERS: PCP Family Medicine; Visit Provider Family Medicine
DX: E03.9 Hypothyroidism, unspecified (principal); E78.5 Hyperlipidemia, unspecified
CPT/HCPCS: 80061; 84443

== ENCOUNTER 2024-06-21 19:00 | Outpatient (REF) | payer MEDICAID, SELFPAY ==
[2024-06-21 21:50] LABS: Abs Immature Grans 0.02 10^3/uL (0.0-0.06); Absolute Basophil Count 0.03 10^3/uL (0.0-0.2); Absolute Eosinophil Count 0.03 10^3/uL (0.0-0.7); Absolute Lymphocyte Count 2.05 10^3/uL (1.2-3.4); Absolute Monocyte Count 0.65 10^3/uL (0.1-0.8); Absolute Neutrophil Count 4.71 10^3/uL (1.2-6.7); Basophils % 0.4 %; Eosinophils % 0.4 %; HCT 51.8 % (36.0-46.0); HGB 17.6 g/dL (11.2-15.7); Immature Grans % 0.3 %; Lymphocytes % 27.4 %; MCH 30.2 pg (27.0-33.0); MCV 89 fL (80-95); MPV 9.7 fL (8.0-11.0); Monocytes % 8.7 %; Neutrophils % 62.8 %; Platelet Count 386 10^3/uL (130-400); RBC 5.82 10^6/uL (3.93-5.22); RDW 12.5 % (11.7-14.6); RDW-SD 40.7 fL; WBC 7.49 10^3/uL (4.4-10.8)
[2024-06-21 22:04] LABS: ALT 33 U/L (14-59); AST 25 U/L (15-37); Alkaline Phosphatase 81 U/L (46-116); Anion Gap 11.1 mmol/L (3-11); BUN 13 mg/dL (7-18); Bilirubin, Total 0.76 mg/dL (0.2-1.0); CO2 23.9 mmol/L (21.0-32.0); CREATININE 0.8 mg/dL (0.55-1.02); Calcium 9.6 mg/dL (8.5-10.1); Chloride 104 mmol/L (98-107); Estimated GFR 83.26 (mL/min/1.73m2); Glucose 110 mg/dL (74-106); Potassium 4.1 mmol/L (3.5-5.1); Sodium 139 mmol/L (136-145)
[2024-06-23 08:04] LABS: Lyme Ab w Rflx to Lyme Confirm Negative (Negative)
[2024-06-25 13:54] LABS: Anaplasma phagocytophilum Negative (Negative); B. miyamotoi PCR Negative (Negative); Babesia divergens/MO-1 Negative (Negative); Babesia duncani Negative (Negative); Babesia microti Negative (Negative); Ehrlichia chaffeensis Negative (Negative); Ehrlichia ewingii/canis Negative (Negative); Ehrlichia muris eauclairensis Negative (Negative)
== END 2024-06-21 19:01 | disposition home or self-care (01) ==
LOC: NCHCN 19:00
PROVIDERS: PCP Family Medicine; Visit Provider Family Medicine
DX: R53.81 Other malaise (principal)
CPT/HCPCS: 80053; 87798; 85025; 86618

== ENCOUNTER 2025-01-03 02:05 | Outpatient (CLI) | payer MEDICAID, SELFPAY ==
--- NOTE | 2025-01-03 09:01 | DI.MAMMO_ITS ---
Exam(s) MAMMO SCREENING EXAM: MAMMO SCREENING CLINICAL HISTORY: Screening, Z12.31 TECHNIQUE: Mammograms were interpreted according to the usual protocol including computer analysis w [facility] [employer] CAD system, tomosynthesis and C-view imaging. COMPARISON: 2016 through 2022 FINDINGS: The breasts are composed of scattered fibroglandular densities, Breast Density category B. No suspicious masses or suspicious microcalcifications are seen. No skin thickening or abnormal axillary lymph nodes are seen. There has been no significant change from prior exams. IMPRESSION: BI-RADS Category 1, Negative mammogram Yearly screening mammography is recommended. Breast Density - Category B, scattered fibroglandular densities. A negative radiographic report should not delay biopsy if a dominant or clinically suspicious mass is present. Up to ten percent of cancers are not identified on mammography. A negative report may reinforce clinical impression. Adenosis and dense breasts may obscure an underlying neoplasm. False positive reports average 6 to 10%. Patient will receive a letter notifying them of these results.
== END 2025-01-03 02:25 ==
LOC: DI 02:05
PROVIDERS: PCP Family Medicine; Visit Provider Family Medicine
DX: Z12.31 Encounter for screening mammogram for malignant neoplasm of breast (principal); R92.323 Mammographic fibroglandular density, bilateral breasts
CPT/HCPCS: 77063; 77067

== ENCOUNTER 2025-05-25 15:12 | Outpatient (REF) | payer MEDICAID, SELFPAY ==
[2025-05-25 14:34] LABS: HCT 47.7 % (36.0-46.0); HGB 15.8 g/dL (11.2-15.7); MCH 30.7 pg (27.0-33.0); MCHC 33.1 % (32.0-36.0); MCV 93 fL (80-95); MPV 9.5 fL (8.0-11.0); Platelet Count 290 10^3/uL (130-400); RBC 5.15 10^6/uL (3.93-5.22); RDW 12.5 % (11.7-14.6); RDW-SD 42.6 fL; WBC 5.71 10^3/uL (4.4-10.8)
[2025-05-25 15:09] LABS: Hemoglobin A1C 5.4 % (<5.7)
[2025-05-25 15:11] LABS: Anion Gap 11.8 mmol/L (3-11); BUN 18 mg/dL (7-18); CO2 24.2 mmol/L (21.0-32.0); Calcium 9.0 mg/dL (8.5-10.1); Calculated LDL 134 mg/dL (<100); Chloride 106 mmol/L (98-107); Cholesterol 205 mg/dL (<200); Estimated GFR 100.80 (mL/min/1.73m2); Glucose 93 mg/dL (74-106); HDL Cholesterol 61 mg/dL (>or=50); Potassium 3.7 mmol/L (3.5-5.1); Sodium 142 mmol/L (136-145); TSH 1.21 uIU/mL (0.36-3.74); Triglyceride 50 mg/dL (<150)
== END 2025-05-25 15:13 | disposition home or self-care (01) ==
LOC: NCHCN 15:12
PROVIDERS: PCP Family Medicine; Visit Provider Family Medicine
DX: I10 Essential (primary) hypertension (principal); E78.5 Hyperlipidemia, unspecified; E03.9 Hypothyroidism, unspecified; D75.1 Secondary polycythemia; Z13.1 Encounter for screening for diabetes mellitus
CPT/HCPCS: 80048; 80061; 85027; 83036; 84443

== ENCOUNTER 2025-10-09 01:07 | Outpatient (CLI) | payer MEDICAID, SELFPAY ==
[2025-10-09] MEDS: Inhaler, Assist Device 1 EACH MC (11:24)
[2025-10-09] MEDS: Levalbuterol HFA 15 GM INH 4 PUFF IH (11:24)
--- NOTE | 2025-10-15 13:33 | W.PFT ---
Date of service: 10/09/25 Time of Service: 09:56 Pulmonary Function Test Result Indications: Asthma Impression 1. Good patient effort was noted. ATS standards for reproducibility were met. 2. Normal spirometry. 3. Following the administration of a bronchodilator there was a significant response
== END 2025-10-09 01:08 | disposition home or self-care (01) ==
LOC: RT 01:07
PROVIDERS: PCP Family Medicine; Visit Provider Family Medicine
DX: J45.909 Unspecified asthma, uncomplicated (principal)
CPT/HCPCS: 94060